=== PATIENT | female | born 1985 | race Caucasian/White ===

== ENCOUNTER 2023-06-27 20:42 | Outpatient (REF) | payer OTHER, SELFPAY ==
[2023-07-01 10:10] LABS: Age Gdln ACOG Testing Note (.); HPV Aptima Negative (Negative); IGP, Aptima HPV, rfx 16/18,45 Note (.)
== END 2023-06-27 20:43 | disposition home or self-care (01) ==
LOC: LAB 20:42
PROVIDERS: PCP Obstetrics & Gynecology; Visit Provider Obstetrics & Gynecology
DX: Z01.419 Encounter for gynecological examination (general) (routine) without abnormal findings (principal)
CPT/HCPCS: 87624; G0145

== ENCOUNTER 2024-07-02 21:38 | Outpatient (REF) | payer OTHER, SELFPAY ==
--- OUTSIDE RECORDS SUMMARY | 2024-07-02 21:42 | XMS_ITS | CCD ---
Author Organization [facility] Care Team Providers Care Digital Production Artist Name Role Phone WEI, DR GONGORA Consulting Unavailable WEI, DR GONGORA Admitting Unavailable BUNTING, DR STREET Primary Care Unavailable WEI, DR GONGORA Attending Unavailable WEI, DR GONGOAR Admitting Unavailable WEI, DR GONGORA Attending Unavailable BUNTING, DR STREET Primary Care Unavailable WEI, DR GONGORA Consulting Unavailable WEI, DR GONGORA Consulting Unavailable WEI, DR GONGORA Admitting Unavailable WEI, DR GONGORA Attending Unavailable BUNTING, DR STREET Primary Care Unavailable Bunting, DO Shahab Primary Care Provider Kuns, DO Juan Pinzon Attending Provider [phone] Bunting, DO Shahab Primary Care Provider Kuns, DO Juan Pinzon Attending Provider PHANI CARVAJAL Attending Unavailable Bunting, DO Shahab Primary Care Provider Phani Carvajal Attending Provider [phone] [facility] Martinez P Attending Provider Bunting, DO Shahab Primary Care Provider [phone] Bunting, DO Shahab Attending Provider Bunting, DO Shahab Primary Care Provider Bunting, DO Shahab Attending Provider Bunting, DO Shahab Primary Care Provider Bunting, DO Shahab Attending Provider MD Frankie Mondragon Attending Provider [phone] Bunting DO, Shahab Primary Care Provider [phone] Bunting DO, Shahab Attending Provider Giancarlo ANDERSON, Frankie Attending Provider [phone] Bunting DO, Shahab Primary Care Provider Bunting DO, Shahab Primary Care Provider [phone] Giancarlo ANDERSON, Frankie Attending Provider Asaad, Imad Admitting Unavailable Bunting, Shahab Primary Care Unavailable Asaad, Imad Attending Unavailable Bunting, Shahab Primary Care Unavailable Bunting, Shahab Attending Unavailable Bunting, Shahab Admitting Unavailable Asaad, Imad Admitting Unavailable Bunting, Shahab Primary Care Unavailable Asaad, Imad Attending Unavailable Kuns - CHC, Juan P Admitting Unavailable Kuns - CHC, Juan P Attending Unavailable Bunting, Shahab Primary Care Unavailable Bunting, Shahab Primary Care Unavailable Bunting, Shahab Attending Unavailable Bunting, Shahab Admitting Unavailable Bunting, Shahab Primary Care Unavailable Bunting, Shahab Attending Unavailable Bunting, Shahab Admitting Unavailable Bunting, Shahab Primary Care Unavailable Wei, Phani Admitting Unavailable Wei, Phani Attending Unavailable Bunting, Shahab Primary Care Unavailable Asaad, Imad Attending Unavailable Asaad, Imad Admitting Unavailable Bunting, Shahab Primary Care Unavailable Asaad, Imad Attending Unavailable Asaad, Imad Admitting Unavailable Bunting, Shahab Primary Care Unavailable Asaad, Imad Attending Unavailable Asaad, Imad Admitting Unavailable Bunting, Shahab Primary Care Unavailable Asaad, Imad Attending Unavailable Asaad, Imad Admitting Unavailable Asaad, Imad Admitting Unavailable Bunting, Shahab Primary Care Unavailable Asaad, Imad Attending Unavailable Bunting, Shahab R Primary Care Provider Medications Current Medications Medication Drug Class(es) Dates Sig (Normalized) Sig (Original) levothyroxine sodium 0.125 mg oral tablet (14 sources) l-Thyroxine Start: 09-16-2020 take 1 tablet by mouth once daily Levothyroxine 125 mcg tablet Active 125 MCG PO Daily September 15, 2020 11:00pm predniSONE 5 mg oral tablet (3 sources) Start: 05-22-2024 Prednisone 5 mg tablet Active 5 MG PO As Directed May 22, 2024 12:00am see taper instructions: 40 mg for 2 weeks, 30 mg for 1 week, 20mg for 1 week, 10 mg for 1 week, 5mg for 1 week Problems Active Problems Problem Classification Problem Date Documented Date Episodic/Chronic Hepatitis (1 source) Autoimmune hepatitis; Translations: [Autoimmune hepatitis] Onset: 06-08-2024 Chronic Immunizations and screening for infectious disease (1 source) Encounter for screening for human papillomavirus (HPV); Translations: [ENC SCREENING HUMAN PAPILLOMAVIRUS] Onset: 11-06-2021 Episodic Other liver diseases (6 sources) Steatosis of liver; Translations: [Fatty (change of) liver, not elsewhere classified] 03-13-2024 Chronic Other liver diseases (6 sources) Fatty (change of) liver, not elsewhere classified; Translations: [Other chronic nonalcoholic liver disease] Onset: 03-13-2024 03-13-2024 Chronic Other liver diseases (6 sources) Elevated liver enzymes level; Translations: [Abnormal levels of other serum enzymes] 03-13-2024 Episodic Other liver diseases (17 sources) Abnormal levels of other serum enzymes; Translations: [Other nonspecific abnormal serum enzyme levels] Onset: 06-20-2024 03-13-2024 Episodic Thyroid disorders (1 source) Autoimmune thyroiditis; Translations: [Autoimmune thyroiditis] Onset: 03-07-2024 Chronic Unclassified (1 source) Elevation of levels of liver transaminase levels; Translations: [Elevation of levels of liver transaminase levels] Onset: 04-17-2024 Past or Other Problems Problem Classification Problem Date Documented Date Episodic/Chronic Cancer of other female genital organs (4 sources) Low grade squamous intraepithelial lesion on cytologic smear of vagina (LGSIL); Translations: [LGSI LESION ON CYTOLOGIC SMEAR OF V] Onset: 11-26-2020 Episodic Other liver diseases (1 source) Abnormal serum enzyme level, unspecified; Translations: [Abnormal serum enzyme level, unspecified] Onset: 11-29-2023 Episodic Other screening for suspected conditions (not mental disorders or infectious disease) (6 sources) Encounter for screening for malignant neoplasm of cervix; Translations: [Other specified abnormal findings of blood chemistry] Onset: 05-29-2021 Episodic Results Test Name Value Interpretation Reference Range Facility Alanine aminotransferase [En zymatic activity/volume] in Serum or PlasmaOrdered By: Imad Asaad on 06-20-2024 ALT [Catalytic activity/Vol] Alanine aminotransferase [Enzymatic activity/volume] in Serum or Plasma 7-52 [facility] Albumin [Mass/volume] in Ser um or Plasma by Bromocresol green (BCG) dye binding methoOrdered By: Imad Asaad on 06-20-2024 Albumin BCG dye [Mass/Vol] Albumin [Mass/volume] in Serum or Plasma by Bromocresol green (BCG) dye binding metho 3.5-5.7 [facility] Alkaline phosphatase [Enzyma tic activity/volume] in Serum or PlasmaOrdered By: Imad Asaad on 06-20-2024 ALP [Catalytic activity/Vol] Alkaline phosphatase [Enzymatic activity/volume] in Serum or Plasma 34-104 [facility] Aspartate aminotransferase [ Enzymatic activity/volume] in Serum or PlasmaOrdered By: Imad Asaad on 06-20-2024 AST [Catalytic activity/Vol] Aspartate aminotransferase [Enzymatic activity/volume] in Serum or Plasma 13-39 [facility] Bilirubin.direct [Mass/volum e] in Serum or PlasmaOrdered By: Imad Asaad on 06-20-2024 Bilirubin.direct [Mass/Vol] Bilirubin.direct [Mass/volume] in Serum or Plasma High 0.03-0.18 [facility] Bilirubin.total [Mass/volume ] in Serum or PlasmaOrdered By: Imad Asaad on 06-20-2024 Bilirubin [Mass/Vol] Bilirubin.total [Mass/volume] in Serum or Plasma High 0.3-1.0 [facility] Comment on above: Samples from patient s who have taken Naproxen have shown spurious elevation in Total Bilirubin levels. A metabolite of Naproxen, O-desmethylnaproxen, has been shown to interfere with the Jendrassik-Grof method for measuring Total Bilirubin. Globulin Calc (S) [Mass/Vol] Ordered By: Imad Asaad on 06-20-2024 Globulin (S) [Mass/Vol] Serum globulin m easurement by calculation (mass/volume) [facility] Hepatic Panelon 06-20-2024 Albumin [Mass/Vol] 4.6 g/dL Normal 3.5-5.7 [facility] Comment on above: Performed By: #### P ILLAR CBC, PILLAR BMP, PILLAR LIPID, PILLAR TSH #### [address] Albumin/Globulin [Mass ratio] 1.8 {ratio} Normal [facility] Comment on above: Performed By: #### P ILLAR CBC, PILLAR BMP, PILLAR LIPID, PILLAR TSH #### [address] ALP [Catalytic activity/Vol] 44 U/L Normal 34-104 [facility] Comment on above: Result Comment: PERF ORMED BY: [place] [address] PATHOLOGIST CLOUD DEVELOPER STERLING SANON M.D. Performed By: #### P ILLAR CBC, PILLAR BMP, PILLAR LIPID, PILLAR TSH #### [address] ALT [Catalytic activity/Vol] 34 U/L Normal 7-52 [facility] Comment on above: Performed By: #### P ILLAR CBC, PILLAR BMP, PILLAR LIPID, PILLAR TSH #### [address] AST [Catalytic activity/Vol] 25 U/L Normal 13-39 [facility] Comment on above: Performed By: #### P ILLAR CBC, PILLAR BMP, PILLAR LIPID, PILLAR TSH #### [place] [address] [place] Bilirubin [Mass/Vol] 2.1 mg/dL High 0.3-1.0 [facility] Comment on above: Result Comment: Samp les from patients who have taken Naproxen have shown spurious elevation in Total Bilirubin levels. A metabolite of Naproxen, O-desmethylnaproxen, has been shown to interfere with the Jenlondonik-Amparo method for measuring Total Bilirubin. Performed By: #### P ILLAR CBC, PILLAR BMP, PILLAR LIPID, PILLAR TSH #### [address] Bilirubin,Indirect 1.8 mg/dL Normal [facility] Comment on above: Performed By: #### P ILLAR CBC, PILLAR BMP, PILLAR LIPID, PILLAR TSH #### [address] Bilirubin.indirect [Mass/Vol] 0.30 mg/dL High 0.03-0.18 [facility] Comment on above: Performed By: #### P ILLAR CBC, PILLAR BMP, PILLAR LIPID, PILLAR TSH #### [address] Globulin (S) [Mass/Vol] 2.6 g/dL Normal T [facility] Comment on above: Performed By: #### P ILLAR CBC, PILLAR BMP, PILLAR LIPID, PILLAR TSH #### [address] Protein [Mass/Vol] 7.2 g/dL Normal 6.4-8.9 [facility] Comment on above: Performed By: #### P ILLAR CBC, PILLAR BMP, PILLAR LIPID, PILLAR TSH #### [address] Immunoglobulin [place] Immunoglobulin G 1004 mg/dL Normal [id number] [facility] Comment on above: Result Comment: Perf ormed at: - [facility] [address] [id number] Intake Rn: Sang Nunez PhD, Phone: [phone] PERFORMED BY: [place] [address] PATHOLOGIST CLOUD DEVELOPER STERLING SANON M.D. Performed By: #### P ILLAR CBC, PILLAR BMP, PILLAR LIPID, PILLAR TSH #### [address] Protein [Mass/volume] in Ser um or PlasmaOrdered By: Frankie Mondragon on 06-20-2024 Protein [Mass/Vol] Protein [Mass/volume ] in Serum or Plasma 6.4-8.9 [facility] Serum or plasma albumin/glob ulin mass ratioOrdered By: Frankie Mondragon on 06-20-2024 Albumin/Globulin [Mass ratio] Serum or plasma albumin/globulin mass ratio [facility] Serum or plasma non-glucuron idated bilirubin measurement (mass/volume)Ordered By: Frankie Mondragon on 06-20-2024 Bilirubin.indirect [Mass/Vol] Serum or plasma non-glucuronidated bilirubin measurement (mass/volume) [facility] Interpretation of laboratory dataOrdered By: Frankie Mondragon on 06-08-2024 Interpretation and review of laboratory results Interpretation of laboratory data . [facility] Comment on above: The thiopurine methy ltransferase (TPMT) and nudix hydrolase(NUDT15) genes encode drug-metabolizing enzymes involvedin the metabolism of several clinically important drugsincluding the immunosuppressants azathioprine,mercaptopurine and thioguanine. The TPMT and NUDT15 enzymeshave similar functions in a shared thiopurine-metabolizingpathway; genotype and metabolic activity for TPMT [id number] may therefore be considered together whenassessing possible effects on drug response. Individualswith some variant TPMT and NUDT15 alleles may experience areduced therapeutic response and may be at risk for sideeffects from drugs that are metabolized by TPMT and NUDT15.TPMT and NUDT15 genotype information can be utilized topredict TPMT and NUDT15 metabolic activity which can beused as an aid in determining a therapeutic strategy fordrugs that are metabolized by TPMT and NUDT15. For example,thiopurine use in an individual with poor or intermediateTPMT and/or NUDT15 metabolism is associated with anaccumulation of cytotoxic metabolites and an increasedrisk for myelosuppression. In these instances, alternativedoses or drugs may be considered.Variation in the TPMT and NUDT15 genes can result in normal(NM), intermediate (IM), possible intermediate (Poss IM),poor (PM) and indeterminate (IND) drug-metabolizingphenotypes. In general, relative to the *1 allele (normalfunction), TPMT *2, *3A, *3B, *3C and NUDT15 *2 and *3alleles have no function whilst the NUDT15*4 allele has anuncertain function. The exact effect of a particulargenotype on individual drugs can vary. In addition togenotype, the metabolism of drugs may be influenced byadditional factors that include environmental, dietary andother medications; these factors and others should beconsidered prior to initiating a new therapy. All resultsmust be interpreted in the context of other test resultsand clinical findings. Results do not rule out thepossibility of other variant alleles in TPMT and NUDT15 orvariant alleles in other drug metabolism pathways.Patients should speak with their health care provider aboutthe individual results of this test. Interpretation of tissue or whole blood NUDT15 gene product metabolic activity (ordinOrdered By: Frankie Mondragon on 06-08-2024 NUDT15 gene product metabolic activity interpretation [employer] Ql (Bld/Tiss) [Interp] Interpretation of tissue or whole blood NUDT15 gene product metabolic activity (ordin . [facility] Comment on above: This test was develo ped and its performance characteristicsdetermined by [facility]. It has not been cleared orapproved by the Food and Drug Administration. shelter director name in ProviderOrdered By: Frankie Mondragon on 06-08-2024 shelter director name Nom (Provider) shelter director name in Provider . [facility] Comment on above: Shane Fink MD, P hDDirectorMonogram Biosciences NUDT15 gene mutations found [Identifier] in Blood or Tissue by Molecular genetics metOrdered By: Frankie Mondragon on 06-08-2024 NUDT15 gene targeted mutation analysis Molgen Nom (Bld/Tiss) NUDT15 gene mutations found [Identifier] in Blood or Tissue by Molecular genetics met . [facility] Comment on above: This test was develo ped and its performance characteristicsdetermined by [facility]. It has not been cleared orapproved by the Food and Drug Administration. No Panel InformationOrdered By: Frankie Mondragon on 06-08-2024 TPMT Genotype *1/*1 . [facility] Comment on above: This test was develo ped and its performance characteristicsdetermined by [facility]. It has not been cleared orapproved by the Food and Drug Administration. TPMT gene product metabolic activity interpretation in Blood or Tissue Qualitative byOrdered By: Frankie Mondragon on 06-08-2024 TPMT gene product metabolic activity interpretation Molgen Ql (Bld/Tiss) [Interp] TPMT gene product metabolic activity interpretation in Blood or Tissue Qualitative by . [facility] Comment on above: This test was develo ped and its performance characteristicsdetermined by [employer]. It has not been cleared orapproved by the Food and Drug Administration. Test performance information narrativeOrdered By: Frankie Mondragon on 06-08-2024 Test performance information Hans (Unsp spec) Test performance information in Specimen Narrative . [facility] Comment on above: Methodology:DNA anal ysis is performed by allele-specific real-timepolymerase chain reactions (RT-PCR) to detect single-nucleotide polymorphisms (SNPs) within the TPMT and [id number] and to assign variant TPMT *2, *3A, *3B and *3C [id number] *2 or *3 and *4 alleles. *1 denotes detection of thereference (wild-type) sequence at the assessed alleles. Noother variants in this gene are detected by this assay.This assay cannot distinguish between NUDT15 *2 and *3alleles, genotype reported as *2 or *3; this distinction isnot thought to be clinically relevant because both have nofunction. This assay is also unable to distinguish betweenthe more likely TPMT *1/*3A genotype (intermediate TPMTactivity) and the very rare TPMT *3B/*3C genotype (poorTMPT activity), genotype reported as *1/*3A or unlikely*3B/*3C, metabolic activity reported as likelyintermediate; these possibilities can be distinguished bytesting TPMT enzyme levels [Test #[id number]].Molecular-based testing is highly accurate, but as in anylaboratory test rare diagnostic errors may occur.References:1. https://www.fda.gov/medical-devices/precision-medicine/table- pharmacogenetic-association.2. Natalia WEBER., Olive M., Rebekah Vital., et al.Clinical Pharmacogenetics Implementation [facility] for Thiopurine Dosing Based on TPMT and [id number]: 2018 Update. Clinical Pharmacology andTherapeutics. 2019; Vol 105(5).3. ROLANDA Green., Meseret RCUZ., Sung ML., et al. TPMT [id number] Genotyping Recommendations: A Joint ConsensusRecommendation of the Association for MolecularPathology, Clinical Pharmaco- genetics ImplementationConsortium, College of [place] Pathologists, DutchPharmacogenetics Working Group of the [place] DutchPharmacists Association, Society for Pharmaco- genomics and Personalized Therapy, andPharmacogenomics Knowledgebase. Association forMolecular Pathology and [place] Society forInvestigative Pathology. 2021. 4. Pao Emerson. ThiogaunineTherapy and TPMT and NUDT15 Genotype. [facility] Information, Medical Genetics Summaries.2019.For more information on interpreting this report, pleasevisit [facility] or call Customer Service at [phone] the hours of 6:30am to 5:00pm PT Tuesday throughTuesday.[employer] is a subsidiary of [employer], using the brand [employer].The results should not be used as the sole criteria forpatient management.Performed at: - [facility] [place] [id number] Director: Shane Fink MD, Phone: [phone] Alanine aminotransferase [En zymatic activity/volume] in Serum or PlasmaOrdered By: Imad Asaad on 06-06-2024 ALT [Catalytic activity/Vol] Alanine aminotransferase [Enzymatic activity/volume] in Serum or Plasma 7-52 [facility] Albumin [Mass/volume] in Ser um or Plasma by Bromocresol green (BCG) dye binding methoOrdered By: Imad Asaad on 06-06-2024 Albumin BCG dye [Mass/Vol] Albumin [Mass/volume] in Serum or Plasma by Bromocresol green (BCG) dye binding metho 3.5-5.7 [facility] Alkaline phosphatase [Enzyma tic activity/volume] in Serum or PlasmaOrdered By: Imad Asaad on 06-06-2024 ALP [Catalytic activity/Vol] Alkaline phosphatase [Enzymatic activity/volume] in Serum or Plasma 34-104 [facility] Aspartate aminotransferase [ Enzymatic activity/volume] in Serum or PlasmaOrdered By: Imad Asaad on 06-06-2024 AST [Catalytic activity/Vol] Aspartate aminotransferase [Enzymatic activity/volume] in Serum or Plasma 13-39 [facility] Bilirubin.direct [Mass/volum e] in Serum or PlasmaOrdered By: Imad Asaad on 06-06-2024 Bilirubin.direct [Mass/Vol] Bilirubin.direct [Mass/volume] in Serum or Plasma High 0.03-0.18 [facility] Bilirubin.total [Mass/volume ] in Serum or PlasmaOrdered By: Imad Asaad on 06-06-2024 Bilirubin [Mass/Vol] Bilirubin.total [Mass/volume] in Serum or Plasma High 0.3-1.0 [facility] Comment on above: Samples from patient s who have taken Naproxen have shown spurious elevation in Total Bilirubin levels. A metabolite of Naproxen, O-desmethylnaproxen, has been shown to interfere with the Dee-Amparo method for measuring Total Bilirubin. Globulin Calc (S) [Mass/Vol] Ordered By: Imad Asaad on 06-06-2024 Globulin (S) [Mass/Vol] Serum globulin m easurement by calculation (mass/volume) [facility] Hepatic Panelon 06-06-2024 Albumin [Mass/Vol] 4.2 g/dL Normal 3.5-5.7 [facility] Comment on above: Performed By: #### P ILLAR CBC, PILLAR BMP, PILLAR LIPID, PILLAR TSH #### [facility] [address] [place] [address] Albumin/Globulin [Mass ratio] 1.6 {ratio} Normal [facility] Comment on above: Performed By: #### P ILLAR CBC, PILLAR BMP, PILLAR LIPID, PILLAR TSH #### [facility] [address] ALP [Catalytic activity/Vol] 45 U/L Normal 34-104 [facility] Comment on above: Result Comment: PERF ORMED BY: [place] [address] PATHOLOGIST CLOUD DEVELOPER STERLING SANON M.D. Performed By: #### P ILLAR CBC, PILLAR BMP, PILLAR LIPID, PILLAR TSH #### [facility] [address] [place] [id number] [facility] ALT [Catalytic activity/Vol] 24 U/L Normal 7-52 [facility] Comment on above: Performed By: #### P ILLAR CBC, PILLAR BMP, PILLAR LIPID, PILLAR TSH #### [address] AST [Catalytic activity/Vol] 17 U/L Normal 13-39 [facility] Comment on above: Performed By: #### P ILLAR CBC, PILLAR BMP, PILLAR LIPID, PILLAR TSH #### [address] Bilirubin [Mass/Vol] 1.9 mg/dL High 0.3-1.0 [facility] Comment on above: Result Comment: Samp les from patients who have taken Naproxen have shown spurious elevation in Total Bilirubin levels. A metabolite of Naproxen, O-desmethylnaproxen, has been shown to interfere with the Jendrassik-Grof method for measuring Total Bilirubin. Performed By: #### P ILLAR CBC, PILLAR BMP, PILLAR LIPID, PILLAR TSH #### [address] Bilirubin,Indirect 1.6 mg/dL Normal [facility] Comment on above: Performed By: #### P ILLAR CBC, PILLAR BMP, PILLAR LIPID, PILLAR TSH #### [address] Bilirubin.indirect [Mass/Vol] 0.30 mg/dL High 0.03-0.18 [facility] Comment on above: Performed By: #### P ILLAR CBC, PILLAR BMP, PILLAR LIPID, PILLAR TSH #### [address] Globulin (S) [Mass/Vol] 2.7 g/dL Normal T [facility] Comment on above: Performed By: #### P ILLAR CBC, PILLAR BMP, PILLAR LIPID, PILLAR TSH #### [address] Protein [Mass/Vol] 6.9 g/dL Normal 6.4-8.9 [facility] Comment on above: Performed By: #### P ILLAR CBC, PILLAR BMP, PILLAR LIPID, PILLAR TSH #### [facility] [address] [place] [address] [place] Immunoglobulin [place] Immunoglobulin G 1090 mg/dL Normal [id number] [facility] Comment on above: Result Comment: Perf ormed at: CB - [facility] [place] [address] [id number] Intake Rn: Sang Nunez PhD, Phone: [phone] PERFORMED BY: [place] [address] PATHOLOGIST CLOUD DEVELOPER STERLING SANON M.D. Performed By: #### P ILLAR CBC, PILLAR BMP, PILLAR LIPID, PILLAR TSH #### [facility] [address] Protein [Mass/volume] in Ser um or PlasmaOrdered By: Imad Asaad on 06-06-2024 Protein [Mass/Vol] Protein [Mass/volume ] in Serum or Plasma 6.4-8.9 [facility] Serum or plasma IgG measurem ent (mass/volume)Ordered By: Imad Asaad on 06-06-2024 IgG [Mass/Vol] IgG [Mass/volume] in Serum or Plasma [phone] [facility] Comment on above: Performed at: CB - [facility] [place] [id number] Director: Sang Nunez PhD, Phone: [phone] Serum or plasma albumin/glob ulin mass ratioOrdered By: Imad Asaad on 06-06-2024 Albumin/Globulin [Mass ratio] Serum or plasma albumin/globulin mass ratio [facility] Serum or plasma non-glucuron idated bilirubin measurement (mass/volume)Ordered By: Imad Asaad on 06-06-2024 Bilirubin.indirect [Mass/Vol] Serum or plasma non-glucuronidated bilirubin measurement (mass/volume) [facility] Coagulation Profileon 2023 aPTT Coag (Bld) [Time] 30.0 s Normal 25.1-36.5 [facility] Comment on above: Order Comment: STAT FOR BX Result Comment: A he matocrit value greater than 55% may lead to inaccurate results in coagulation testing. Patients having hematocrit values >55% require a special collection tube for coagulation studies. Please contact the laboratory at [phone] for redraw instructions. PERFORMED BY: [address] [address] PATHOLOGIST CLOUD DEVELOPER STERLING SANON M.D. Performed By: #### P ILLAR CBC, PILLAR BMP, PILLAR LIPID, PILLAR TSH #### [facility] [address] [place] [address] [facility] INR Coag (PPP) [Relative time] 1.0 {INR} Normal [facility] Comment on above: Order Comment: STAT FOR BX Result Comment: INR Therapeutic Range A) Pre- and Peroperative OAT started two weeks before surgery. NOT HIP SURGERY: 1.5 - 2.5 HIP SURGERY: 2 - 3 B) Primary and secondary prevention of venous THROMBOSIS: 2 - 3 C) Active venous thrombosis, pulmonary embolism and prevention of recurrent venous thrombosis: 2 - 3 D) Prevention of arterial thromboembolism including patients with mechanical heart valves: 3 - 4.5 Performed By: #### P ILLAR CBC, PILLAR BMP, PILLAR LIPID, PILLAR TSH #### [facility] [address] [place] [address] [facility] PT Coag (PPP) [Time] 11.2 s Normal 9.0-12.9 [facility] Comment on above: Order Comment: STAT FOR BX Result Comment: A he matocrit value greater than 55% may lead to inaccurate results in coagulation testing. Patients having hematocrit values >55% require a special collection tube for coagulation studies. Please contact the laboratory at [phone] for redraw instructions. Performed By: #### P ILLAR CBC, PILLAR BMP, PILLAR LIPID, PILLAR TSH #### [facility] [address] [place] [address] [place] INR in Platelet poor plasma by Coagulation assayOrdered By: Frankie Mondragon on 05-03-2024 INR Coag (PPP) [Relative time] INR in Platelet poor plasma by Coagulation assay [facility] Comment on above: INR Therapeutic Rang e A) Pre- and Peroperative OAT started two weeks before surgery. NOT HIP SURGERY: 1.5 - 2.5 HIP SURGERY: 2 - 3B) Primary and secondary prevention of venous THROMBOSIS: 2 - 3C) Active venous thrombosis, pulmonary embolismand prevention of recurrent venous thrombosis: 2 - 3D) Prevention of arterial thromboembolismincluding patients with mechanical heart valves: 3 - 4.5 Platelet Counton 05-03-2024 Platelets (Bld) [#/Vol] 176 10*3/uL Normal 150-450 [facility] Comment on above: Order Comment: STAT FOR BX Result Comment: PERF ORMED BY: [place] [address] PATHOLOGIST CLOUD DEVELOPER STERLING SANON M.D. Performed By: #### P ILLAR CBC, PILLAR BMP, PILLAR LIPID, PILLAR TSH #### [address] Platelets Auto (Bld) [#/Vol] Ordered By: Frankie Mondragon on 05-03-2024 Platelets (Bld) [#/Vol] Platelets [#/vol ume] in Blood by Automated count 150-450 [facility] Prothrombin time (PT)Ordered By: Frankie Mondragon on 05-03-2024 PT Coag (PPP) [Time] Prothrombin time (PT) 9.0- 12.9 [facility] Comment on above: A hematocrit value g reater than 55% may lead to inaccurate results in coagulation testing. Patients having hematocrit values >55% require a special collection tube for coagulation studies. Please contact the laboratory at [phone] for redraw instructions. US needle biopsyon 4 US needle biopsy [facility] [place] [address] [place] [address] Ultrasound Report Signed Patient: Madeleine Rodriguez MR#: [id number] : 1985 Acct:[id number] Age/Sex: 38 / F ADM Date: 05/03/24 Loc: Room: Type: [facility] Attending Dr: Frankie Mondragon MD Ordering Provider: Frankie Mondragon MD Date of Service: 05/03/24 US/US needle biopsy: R74.8 - Abnormal levels of other serum enzymes Copies to: Frankie Mondragon MD US needle biopsy 05/03/2024 9:43 AM SIGNS AND SYMPTOMS: Abnormal liver enzymes INFORMED CONSENT: Reason for procedure was discussed with the patient. The procedure expectations risks benefits options and alternatives were discussed. All the questions were answered. The patient understood the results cannot be guaranteed. The procedure is indicated and risks were acceptable. Consent was obtained. PROCEDURE: The left hepatic lobe was visualized in the epigastric region using grayscale sonographic imaging. The skin was marked in this location. The skin was prepped and draped in a sterile manner. 8 mL of lidocaine 2% without epinephrine were used for local anesthesia. Using an 18-gauge [employer] core biopsy system the liver was accessed percutaneously under sonographic visualization. A total of three 2.2 cm 18-gauge core specimens were obtained through the guide needle. The needles were removed and hemostasis was gained using manual pressure. A bandage was placed at the puncture site. The patient tolerated the procedure well. No immediate complications were detected. US/US needle biopsy IMPRESSION: Successful ultrasound-guided random core needle biopsy of the left hepatic lobe as above. Impression dictated by: Dre Marshall M.D.05/03/2024 12:30 PM Dictation Location: [place] [address] Tech: Avis Nash Transcribed By: TRUNG 05/03/24 1230 Dictated By: Dre Marshall II, MD 05/03/24 1228 Signed By: 05/03/24 1230 Normal [facility] aPTT in Platelet poor plasma by Coagulation assayOrdered By: Frankie Mondragon on 05-03-2024 aPTT Coag (PPP) [Time] Activated partial thromboplastin time (aPTT) in platelet poor plasma by coagulation a 25.1-36.5 [facility] Comment on above: A hematocrit value g reater than 55% may lead to inaccurate results in coagulation testing. Patients having hematocrit values >55% require a special collection tube for coagulation studies. Please contact the laboratory at [phone] for redraw instructions. Saad 05-02-2024 L ------- Specimen: [id number] Received: 05/03/24 Status: ZOHREH Erin Num: [id number] Spec Type: Surgical Subm Dr: Dre Marshall II, MD Tissues: A Gross Only (RANDOM LIVER BX) Procedures: Level 1 Gross Age/ Patient Sex Location Account Attending Physician Madeleine Rodriguez 38/F UL [id number] Frankie Mondragon MD SPEC NUM: [id number] RECD: 05/03/24 STATUS: ZOHREH ERIN NUM: [id number] LIZET: 05/02/[address]: Dre Marshall II, MD ENTERED: 05/03/[address] [facility] DR: Frankie Mondragon MD SPEC TYPE: Surgical DEPT: S ENTERED BY: [id number] RECV BY: [id number] ORDERED: Level 1 Gross ORDERED: Level 1 Gross Supplemental Report Addendum 1 Entered: 05/08/24 Supplemental for findings of consultation report from [facility]: -Hepatic parenchyma with portal inflammation (see comment) Note: -Please also see detailed description in entire report on file Addendum Signed (signature on file) Francis Echevarria MD 05/08/24 0849 Pathological Diagnosis Left lobe of liver, random core biopsies: -4 pale-champion to yellowish cylindrical segments of hepatic tissue to be entirely submitted to the reference laboratory for consultation testing. Gross only examination Specimen: [id number] Received: 05/03/24 Status: ZOHREH Erin Num: [id number] Spec Type: Surgical Subm Dr: Dre Marshall II, MD Tissues: A Gross Only (RANDOM LIVER BX) Procedures: Level 1 Gross Patient: MichaelMadeleine quezada [id number] (Continued) Specimen: [id number] Received: 05/03/24 (Continued) Signed (signature on file) Francis Echevarria MD 05/08/24 0844 Specimen: [id number] Received: 05/03/24 Status: ZOHREH Erin Num: [id number] Spec Type: Surgical Subm Dr: Dre Marshall II, MD Tissues: A Gross Only (RANDOM LIVER BX) Procedures: Level 1 Gross Patient: Madeleine Rodriguez [id number] (Continued) Specimen: [id number] Received: 05/03/24 (Continued) Clinical Information Elevated liver enzymes, R74.8-abnormal levels of other serum enzymes Gross Description Part A is received fresh labeled with the patients name, date of , and random liver L lobe of liver biopsy is a saline-soaked Telfa pad with 4 pale-champion to yellow, delicate needle core biopsy segments, 0.8 to 2.5 cm in length. The specimen is sent to [facility] for analysis. GROSS ONLY- CPT Codes 38066 Specimen: [id number] Received: 05/03/24 Status: ZOHREH Mendez Num: [id number] Spec Type: Surgical Subm Dr: Dre Marshall II, MD Tissues: A Gross Only (RANDOM LIVER BX) Procedures: Level 1 Gross Patient: Madeleine Rodriguez [id number] (Continued) Signed (signature on file) Francis Echevarria MD 05/08/24 0844 Normal [facility] Alanine aminotransferase [En zymatic activity/volume] in Serum or PlasmaOrdered By: Imad Asaad on 04-17-2024 ALT [Catalytic activity/Vol] Alanine aminotransferase [Enzymatic activity/volume] in Serum or Plasma High 7-52 [facility] Albumin [Mass/volume] in Ser um or Plasma by Bromocresol green (BCG) dye binding methoOrdered By: Imad Asaad on 04-17-2024 Albumin BCG dye [Mass/Vol] Albumin [Mass/volume] in Serum or Plasma by Bromocresol green (BCG) dye binding metho 3.5-5.7 [facility] Alkaline phosphatase [Enzyma tic activity/volume] in Serum or PlasmaOrdered By: Imad Asaad on 04-17-2024 ALP [Catalytic activity/Vol] Alkaline phosphatase [Enzymatic activity/volume] in Serum or Plasma 34-104 [facility] Aspartate aminotransferase [ Enzymatic activity/volume] in Serum or PlasmaOrdered By: Imad Asaad on 04-17-2024 AST [Catalytic activity/Vol] Aspartate aminotransferase [Enzymatic activity/volume] in Serum or Plasma High 13-39 [facility] Bilirubin.direct [Mass/volum e] in Serum or PlasmaOrdered By: Imad Asaad on 04-17-2024 Bilirubin.direct [Mass/Vol] Bilirubin.direct [Mass/volume] in Serum or Plasma High 0.03-0.18 [facility] Bilirubin.total [Mass/volume ] in Serum or PlasmaOrdered By: Imad Asaad on 04-17-2024 Bilirubin [Mass/Vol] Bilirubin.total [Mass/volume] in Serum or Plasma High 0.3-1.0 [facility] Comment on above: Samples from patient s who have taken Naproxen have shown spurious elevation in Total Bilirubin levels. A metabolite of Naproxen, O-desmethylnaproxen, has been shown to interfere with the Jendrassik-Grof method for measuring Total Bilirubin. Globulin Calc (S) [Mass/Vol] Ordered By: Frankie Mondragon on 04-17-2024 Globulin (S) [Mass/Vol] Serum globulin m easurement by calculation (mass/volume) [facility] Hepatic Panelon 04-17-2024 Albumin [Mass/Vol] 4.5 g/dL Normal 3.5-5.7 [facility] Comment on above: Performed By: #### P ILLAR CBC, PILLAR BMP, PILLAR LIPID, PILLAR TSH #### [address] Albumin/Globulin [Mass ratio] 1.6 {ratio} Normal [facility] Comment on above: Performed By: #### P ILLAR CBC, PILLAR BMP, PILLAR LIPID, PILLAR TSH #### [address] ALP [Catalytic activity/Vol] 53 U/L Normal 34-104 [facility] Comment on above: Result Comment: PERF ORMED BY: [place] [address] PATHOLOGIST CLOUD DEVELOPER STERLING SANON M.D. Performed By: #### P ILLAR CBC, PILLAR BMP, PILLAR LIPID, PILLAR TSH #### [address] ALT [Catalytic activity/Vol] 75 U/L High 7-52 [facility] Comment on above: Performed By: #### P ILLAR CBC, PILLAR BMP, PILLAR LIPID, PILLAR TSH #### [place] [address] [place] AST [Catalytic activity/Vol] 43 U/L High 13-39 [facility] Comment on above: Performed By: #### P ILLAR CBC, PILLAR BMP, PILLAR LIPID, PILLAR TSH #### [place] [address] [place] Bilirubin [Mass/Vol] 1.7 mg/dL High 0.3-1.0 [facility] Comment on above: Result Comment: Samp les from patients who have taken Naproxen have shown spurious elevation in Total Bilirubin levels. A metabolite of Naproxen, O-desmethylnaproxen, has been shown to interfere with the Jendrassik-Grof method for measuring Total Bilirubin. Performed By: #### P ILLAR CBC, PILLAR BMP, PILLAR LIPID, PILLAR TSH #### [facility] [address] [place] [id number] [facility] Bilirubin,Indirect 1.4 mg/dL Normal [facility] Comment on above: Performed By: #### P ILLAR CBC, PILLAR BMP, PILLAR LIPID, PILLAR TSH #### [place] [id number] [facility] Bilirubin.indirect [Mass/Vol] 0.30 mg/dL High 0.03-0.18 [facility] Comment on above: Performed By: #### P ILLAR CBC, PILLAR BMP, PILLAR LIPID, PILLAR TSH #### [facility] [address] [place] [id number] [facility] Globulin (S) [Mass/Vol] 2.8 g/dL Normal T [facility] Comment on above: Performed By: #### P ILLAR CBC, PILLAR BMP, PILLAR LIPID, PILLAR TSH #### [address] [address] [facility] Protein [Mass/Vol] 7.3 g/dL Normal 6.4-8.9 [facility] Comment on above: Performed By: #### P ILLAR CBC, PILLAR BMP, PILLAR LIPID, PILLAR TSH #### [place] [id number] [place] Protein [Mass/volume] in Ser um or PlasmaOrdered By: Imad Asaad on 04-17-2024 Protein [Mass/Vol] Protein [Mass/volume ] in Serum or Plasma 6.4-8.9 [facility] Serum or plasma albumin/glob ulin mass ratioOrdered By: Imad Asaad on 04-17-2024 Albumin/Globulin [Mass ratio] Serum or plasma albumin/globulin mass ratio [facility] Serum or plasma non-glucuron idated bilirubin measurement (mass/volume)Ordered By: Frankie Mondragon on 04-17-2024 Bilirubin.indirect [Mass/Vol] Serum or plasma non-glucuronidated bilirubin measurement (mass/volume) [facility] KISHAN Antinuclear Antibodieson 03-13-2024 Antinuclear Abs, IFA Positive Critically abnormal . [facility] Comment on above: Result Comment: Nega tive <1:80 Borderline 1:80 Positive >1:80 Performed By: #### L -K MICRO, HEMOCHROM, ELF, HAAB, HCBIGM, HCV RX PCR, HAABT, HBSAB, HBCAB, HBSAG, CERULOP, MITOM2, ALPHA PHEN, IGG, KISHAN, SMAB ####[facility] ,#### NESSA ####[facility] [id number] Note 1 Comment Normal . [facility] Comment on above: Result Comment: Nirmala urbina Potential Disease Association Homogeneous Systemic Lupus Erythematosus, Drug Induced Systemic Lupus Erythematosus, Chronic Autoimmune hepatitis, Juvenile Idiopathic Arthritis Speckled Sjogren Syndrome, Systemic Lupus Erythematosus, Subacute Cutaneous Lupus, Lupus, Congenital Heart Block, Mixed Connective Tissue Disease, Scleroderma-diffuse, Scleroderma-Autoimmune Myositis Overlap Syndrome, Systemic Lupus Craivcmmtmtfl-Nnmzjqsgnqx-Swtoaaqilr Myositis Overlap Syndrome, Systemic Autoimmune Rheumatic Disease, Undifferentiated Connective Tissue Disease Nucleolar Systemic Sclerosis, Scleroderma-Autoimmune Myositis Overlap Syndrome, Sjogren Syndrome, Raynaud phenomenon, Pulmonary Arterial Hypertension, Systemic Autoimmune Rheumatic Disease, Cancer Centromere Scleroderma-CREST, Limited Cutaneous SSc, Raynaud's Phenomenon, Primary Biliary Cholangitis Nuclear Dot Primary Biliary Cholangitis Nuclear Primary Biliary Cholangitis, Autoimmune Membrane Hepatitis/Liver disease, Systemic Autoimmune Rheumatic Disease, Autoimmune Cytopenias, Linear Scleroderma, Antiphospholipid Syndrome Performed at: - [facility] [id number] Intake Rn: Sang Nunez PhD, Phone: [phone] Performed By: #### L -K MICRO, HEMOCHROM, ELF, HAAB, HCBIGM, HCV RX PCR, HAABT, HBSAB, HBCAB, HBSAG, CERULOP, MITOM2, ALPHA PHEN, IGG, KISHAN, SMAB ####[facility] ,#### NESSA ####[facility] [id number] [place] [id number] [facility] Speckled Pattern 1 High . [facility] Comment on above: Result Comment: ICAP nomenclature: AC-2,4,5,29 Performed By: #### L -K MICRO, HEMOCHROM, ELF, HAAB, HCBIGM, HCV RX PCR, HAABT, HBSAB, HBCAB, HBSAG, CERULOP, MITOM2, ALPHA PHEN, IGG, KISHAN, SMAB ####[facility] ,#### NESSA ####[facility] [place] [id number] [facility] Actin smooth muscle IgG Ab [ Units/volume] in SerumOrdered By: Imad Asaad on 03-13-2024 Actin smooth muscle IgG Qn (S) Actin smooth muscle IgG Ab [Units/volume] in Serum 0-19 [facility] Comment on above: Negative 0 - 19 Weak positive 20 - 30 Moderate to strong positive >30 Actin Antibodies are found in 52-85% of patients with autoimmune hepatitis or chronic active hepatitis and in 22% of patients with primary biliary cirrhosis. Ylpvs-1-Gkkbxaspiaf Phenotyp amelia 03-13-2024 Alpha 1 Anti-Trypsin 140 mg/dL Normal 100-188 [facility] Comment on above: Performed By: #### L -K MICRO, HEMOCHROM, ELF, HAAB, HCBIGM, HCV RX PCR, HAABT, HBSAB, HBCAB, HBSAG, CERULOP, MITOM2, ALPHA PHEN, IGG, KISHAN, SMAB ####[facility] ,#### NESSA ####[facility] Phenotype (P1) MS Normal . [facility] Comment on above: Result Comment: MM Phenotype is considered to be normal , producing normal serum levels of wbocx-6-huztzrvj inhibitor and not associated with clinical disease. Associated A1A total serum levels in other phenotypes and their incidence in the general population are shown in the table below. Phenotype Population % function A-1-AT Conc.* Incidence % compared to MM (Typical Range) MM 86.5% 100% (96 - 189) MS 8.0% 86% (83 - 161) MZ 3.9% 61% (60 - 111) FM 0.4% 100% (93 - 191) SZ 0.3% 41% (42 - 75) SS 0.1% 64% (62 - 119) ZZ 0.05% 19% (16 - 38) FS 0.05% 70% (70 - 128) FZ Unknown 46% (44 - 88) FF Unknown Unknown *A-1-AT concentration in the homozygous MM phenotype is taken as the reference normal. Percent deficiency in each phenotype is reported relative to this reference. Ranges used to confirm phenotype. Performed at: - [facility] [id number] Intake Rn: Sang Nunez PhD, Phone: [phone] Performed at: - [facility] [id number] Intake Rn: Anna Chen MD, Phone: [phone] Performed By: #### L -K MICRO, HEMOCHROM, ELF, HAAB, HCBIGM, HCV RX PCR, HAABT, HBSAB, HBCAB, HBSAG, CERULOP, MITOM2, ALPHA PHEN, IGG, KISHAN, SMAB ####[facility] ,#### NESSA ####[facility] [address] Blood or tissue HFE gene mut ations identification by molecular genetics methodOrdered By: Frankie Mondragon on 03-13-2024 HFE gene targeted mutation analysis [employer] Nom (Bld/Tiss) Blood or tissue HFE gene mutations identification by molecular genetics method . [facility] Comment on above: Result:c.845G>A (p.C do633Iio) - Not Detectedc.187C>G (p.Kkm67Zzk) - Not Detectedc.193A>T (p.Xmu83Kvd) - Not DetectedNot associated with increased risk to develop clinicalsymptoms of Hereditary Hemochromatosis. In symptomaticindividuals, other causes of iron overload should beevaluated. See Additional Information and Comments.Additional Clinical Information:Hereditary hemochromatosis (HFE related) is an autosomalrecessive iron storage disorder. Patients may have agenetic diagnosis of hereditary hemochromatosis and nevershow clinical symptoms. Clinical symptoms typically appearbetween 40 to 60 years in males and after menopause infemales. Signs and symptoms may include organ damage,primarily in the liver, risk for hepatocellularcarcinoma, diabetes, and heart disease due to ironaccumulation. Life expectancy may be decreased inindividuals who develop cirrhosis. Treatment forclinically symptomatic individuals may includetherapeutic phlebotomy. Liver transplant may be used totreat end stage liver failure. For preventive care,monitoring for iron overload is recommended for patientswho are homozygous for c.845G>A (p.Rhh968Dnj) and have yetto experience clinical symptoms.Comments:The most common HFE variants associated with hereditaryhemochromatosis are c.845G>A (p.Tww246Tld), c.187C>G(p.Feg40Tzv), c.193A>T (p.Hed81Xyo). While patientshomozygous for c.845G>A (p.Lbm568Eme) are the most likelyto present clinical symptoms, less than 10% developclinically significant iron overload with tissue and organdamage.Genetic counseling is recommended to discuss the potentialclinical implications of positive results, as well asrecommendations for testing family members.Genetic Coordinators are available for health careproviders to discuss results at [phone]).Test Details:Three variants analyzed:c.845G>A (p.Zkr129Boc), commonly referred to as C282Yc.187C>G (p.Nhy18Cpu), commonly referred to as H63Dc.193A>T (p.Qzg99Rfo), commonly referred to as N92NXjjcxms/Limitations:DNA Analysis of the HFE gene (NM_[id number]) was performedby PCR amplification followed by restriction enzymedigestion analyses. Results must be combined with clinicalinformation for the most accurate interpretation. Molecular-based testing is highly accurate, but as in any laboratorytest, diagnostic errors may occur. False positive or falsenegative results may occur for reasons that include geneticvariants, blood transfusions, bone marrow transplantation,somatic or tissue-specific mosaicism, mislabeled samples,or erroneous representation of family relationships.This test was developed and its performancecharacteristics determined by [employer]. It has not beencleared or approved by the Food and Drug Administration.References:Cody BR, Efraín PC, Kj KV, Scottie LW, Lola ;[place] [employer] for the [employer] Liver Diseases.Diagnosis and management of hemochromatosis: 2011 practiceguideline by the [place] Association for the Study ofLiver Diseases. Hepatology. 2010;54(1):328-43. doi:10.1002/hep.81067. PMID: 25886837; PMCID: [id number].Camila G, Shaunna P, Ravin LUGO, James H, Jimmie O,Maurice S, Sae I, Tenzin M, Candy S. [facility] best practiceguidelines for the molecular genetic diagnosis ofhereditary hemochromatosis (HH). Eur J Hum Crystal. 2016Apr;24(4):479-95. doi: 10.1038/ejhg.2015.128. Epub 2014. PMID: 36888844; PMCID: [id number]. Ceruloplasminon 03-13-2024 Ceruloplasmin 29.2 mg/dL Normal 19.0-39.0 [facility] Comment on above: Result Comment: Perf ormed at: CB - [facility] [address] [id number] Intake Rn: Sang Nunez PhD, Phone: [phone] PERFORMED BY: [facility] [address] [place] [address] PATHOLOGIST CLOUD DEVELOPER STEPHANIE STONE M.D. Performed By: #### L -K MICRO, HEMOCHROM, ELF, HAAB, HCBIGM, HCV RX PCR, HAABT, HBSAB, HBCAB, HBSAG, CERULOP, MITOM2, ALPHA PHEN, IGG, KISHAN, SMAB ####[facility] ,#### NESSA ####[facility] Cse[address] Enhanced Liver Fibrosis Test on 03-13-2024 Enhanced Liver Fibrosis Score 9.78 Normal <9.80 [facility] Comment on above: Result Comment: ELF( TM) Score Interpretation: Risk cut-offs to assess the likelihood of progression to cirrhosis and liver-related clinical events within 3.9 years following baseline ELF score (IQR: 14.0-22.4 months)*: Lower risk < 9.80 Mid risk 9.80 - 11.29 Higher risk >11.29 Note: The ELF(TM) Score is a unitless numerical value. *Jim SA, Deon VW, Okzeina T, et al. Selonsertib for patients with bridging fibrosis or compensated cirrhosis due to SHIN: Results from randomized phase III STELLAR trials. J Hepatol. 2020 Nov;73(1):26-39. Performed at: [facility] [address] [id number] Intake Rn: Anna Chen MD, Phone: [phone] PERFORMED BY: [place] [address] PATHOLOGIST CLOUD DEVELOPER STERLING SANON M.D. Performed By: #### P ILLAR CBC, PILLAR BMP, PILLAR LIPID, PILLAR TSH #### [facility] [address] [place] [address] Ferritin [Mass/volume] in Se rum or PlasmaOrdered By: Frankie Mondragon on 03-13-2024 Ferritin [Mass/Vol] 27.5 ng/mL Normal 11.0-306.8 [facility] Comment on above: Result Comment: PERF ORMED BY: [place] [address] PATHOLOGIST CLOUD DEVELOPER STEPHANIE STONE M.D. Performed By: #### L -K MICRO, HEMOCHROM, ELF, HAAB, HCBIGM, HCV RX PCR, HAABT, HBSAB, HBCAB, HBSAG, CERULOP, MITOM2, ALPHA PHEN, IGG, KISHAN, SMAB #### [facility] , #### NESSA #### [facility] [address] [place], [place] [id number] [place] Ferritin [Mass/Vol] Ferritin [Mass/volum e] in Serum or Plasma 11.0-306.8 [facility] Hep C Ab wRfx to Qnt PCRon 1 05-13-2023 Hepatitis C Virus Antibody Non-Reactive Normal Non Reactive [facility] Comment on above: Performed By: #### L -K MICRO, HEMOCHROM, ELF, HAAB, HCBIGM, HCV RX PCR, HAABT, HBSAB, HBCAB, HBSAG, CERULOP, MITOM2, ALPHA PHEN, IGG, KISHAN, SMAB #### [facility] , #### NESSA #### [address] Interpretation Hepatitis C Comment Normal . [facility] Comment on above: Result Comment: Not infected with HCV unless early or acute infection is suspected (which may be delayed in an immunocompromised individual), or other evidence exists to indicate HCV infection. Performed By: #### L -K MICRO, HEMOCHROM, ELF, HAAB, HCBIGM, HCV RX PCR, HAABT, HBSAB, HBCAB, HBSAG, CERULOP, MITOM2, ALPHA PHEN, IGG, KISHAN, SMAB #### [facility] , #### NESSA #### [address] Hepatitis A Antibody IgMon 1 05-13-2023 Hepatitis A Antibody IgM Negative Normal Negative [facility] Comment on above: Result Comment: A ne gative anti-HAV IgM result suggests no recent or current HAV infection. Performed By: #### L -K MICRO, HEMOCHROM, ELF, HAAB, HCBIGM, HCV RX PCR, HAABT, HBSAB, HBCAB, HBSAG, CERULOP, MITOM2, ALPHA PHEN, IGG, KISHAN, SMAB #### [facility] , #### NESSA #### [address] Hepatitis A Antibody Totalon 03-13-2024 Hepatitis A Antibody Total Negative Normal Negative [facility] Comment on above: Result Comment: Comm ent: The HAV total antibody assay detects both IgG and IgM but does not differentiate between them. A negative result suggests susceptibility to infection. A positive result could be due to vaccination, previously resolved infection or active infection. Testing for HAV IgM should be performed if active HAV infection is suspected. [facility] offers profiles that will automatically reflex positive HAV total antibody results to IgM (e.g., panel #[id number] HAV Antibody w/ Rfx). Performed By: #### L -K MICRO, HEMOCHROM, ELF, HAAB, HCBIGM, HCV RX PCR, HAABT, HBSAB, HBCAB, HBSAG, CERULOP, MITOM2, ALPHA PHEN, IGG, KISHAN, SMAB ####[facility] ,#### NESSA ####[facility] [id number] Hepatitis A virus Ab [Presen ce] in Serum by ImmunoassayOrdered By: Frankie Mondragon on 03-13-2024 HAV Ab IA Ql (S) Hepatitis A virus Ab [Presence] in Serum by Immunoassay Negative [facility] Comment on above: Comment: The HAV tot al antibody assay detects both IgG andIgM but does not differentiate between them. A negativeresult suggests susceptibility to infection. A positiveresult could be due to vaccination, previously resolvedinfection or active infection. Testing for HAV IgM shouldbe performed if active HAV infection is suspected. [facility] that will automatically reflex positive HAVtotal antibody results to IgM (e.g., panel #[id number] HAVAntibody w/ Rfx). Hepatitis A virus IgM antibo dy assayOrdered By: Frankie Mondragon on 03-13-2024 Hepatitis A IgM Antibody Negative Negative [facility] Comment on above: A negative anti-HAV IgM result suggests no recent orcurrent HAV infection. Hepatitis B Core Antibodyon 03-13-2024 Hepatitis B Core Antibody Negative Normal Negative [facility] Comment on above: Performed By: #### L -K MICRO, HEMOCHROM, ELF, HAAB, HCBIGM, HCV RX PCR, HAABT, HBSAB, HBCAB, HBSAG, CERULOP, MITOM2, ALPHA PHEN, IGG, KISHAN, SMAB ####[facility] ,#### NESSA ####[facility] [id number] Hepatitis B Core Antibody Ig Mon 03-13-2024 Hepatitis B Core Antibody IgM Negative Normal Negative [facility] Comment on above: Result Comment: Perf ormed at: CB - [facility] [address] [id number] Intake Rn: Sang Nunez PhD, Phone: [phone] Performed By: #### L -K MICRO, HEMOCHROM, ELF, HAAB, HCBIGM, HCV RX PCR, HAABT, HBSAB, HBCAB, HBSAG, CERULOP, MITOM2, ALPHA PHEN, IGG, KISHAN, SMAB #### [facility] , #### NESSA #### [address] Hepatitis B Surface Antibody on 03-13-2024 Hepatitis B Surface Antibody Reactive Normal . [facility] Comment on above: Result Comment: Non Reactive: Not immune to HBV infection. Equivocal: Unable to determine if anti-HBs is present at levels consistent with immunity. Reactive: Anti-HBs concentration detected at greater than 10 mIU/mL. Individual is considered to be immune to infection with HBV. Performed By: #### L -K MICRO, HEMOCHROM, ELF, HAAB, HCBIGM, HCV RX PCR, HAABT, HBSAB, HBCAB, HBSAG, CERULOP, MITOM2, ALPHA PHEN, IGG, KISHAN, SMAB ####[facility] ,#### NESSA ####[address] Hepatitis B Surface Antigeno n 03-13-2024 HBsAg Screen Negative Normal Negative [facility] Comment on above: Result Comment: PERF ORMED BY: [place] [address] PATHOLOGIST CLOUD DEVELOPER STEPHANIE STONE M.D. Performed By: #### L -K MICRO, HEMOCHROM, ELF, HAAB, HCBIGM, HCV RX PCR, HAABT, HBSAB, HBCAB, HBSAG, CERULOP, MITOM2, ALPHA PHEN, IGG, KISHAN, SMAB ####[facility] ,#### NESSA ####[address] Hepatitis B virus core IgM a ntibody assayOrdered By: Frankie Mondragon on 03-13-2024 Hepatitis B Core IgM Antibody Negative Negative [facility] Comment on above: Performed at: [address] [id number] Director: Sang Nunez PhD, Phone: [phone] Hepatitis B virus core antib stevie assayOrdered By: Frankie Mondragon on 03-13-2024 Hepatitis B Core Total Antibody Negative Negative [facility] Hepatitis C virus IgG Ab [Pr esence] in Serum or Plasma by ImmunoassayOrdered By: Frankie Mondragon on 03-13-2024 HCV IgG IA Ql Hepatitis C virus Ig G Ab [Presence] in Serum or Plasma by Immunoassay Non Reactive [facility] Hereditary Hemochromatosis,D Alexa 03-13-2024 Hereditary Hemochromatosis Comment Normal . [facility] Comment on above: Result Comment: Resu lt: c.845G>A (p.Fox254Hki) - Not Detected c.187C>G (p.Lvj14Xei) - Not Detected c.193A>T (p.Xwj06Hqh) - Not Detected Not associated with increased risk to develop clinical symptoms of Hereditary Hemochromatosis. In symptomatic individuals, other causes of iron overload should be evaluated. See Additional Information and Comments. Additional Clinical Information: Hereditary hemochromatosis (HFE related) is an autosomal recessive iron storage disorder. Patients may have a genetic diagnosis of hereditary hemochromatosis and never show clinical symptoms. Clinical symptoms typically appear between 40 to 60 years in males and after menopause in females. Signs and symptoms may include organ damage, primarily in the liver, risk for hepatocellular carcinoma, diabetes, and heart disease due to iron accumulation. Life expectancy may be decreased in individuals who develop cirrhosis. Treatment for clinically symptomatic individuals may include therapeutic phlebotomy. Liver transplant may be used to treat end stage liver failure. For preventive care, monitoring for iron overload is recommended for patients who are homozygous for c.845G>A (p.Oxc604Jup) and have yet to experience clinical symptoms. Comments: The most common HFE variants associated with hereditary hemochromatosis are c.845G>A (p.Foh075Zcj), c.187C>G (p.Ngv99Ywj), c.193A>T (p.Lai93Lef). While patients homozygous for c.845G>A (p.Lay712Syw) are the most likely to present clinical symptoms, less than 10% develop clinically significant iron overload with tissue and organ damage. Genetic counseling is recommended to discuss the potential clinical implications of positive results, as well as recommendations for testing family members. Genetic Coordinators are available for health care providers to discuss results at [phone] [phone] Test Details: Three variants analyzed: c.845G>A (p.Qoa061Mdp), commonly referred to as C282Y c.187C>G (p.Kbv93Csm), commonly referred to as H63D c.193A>T (p.Xww85Afh), commonly referred to as S65C Methods/Limitations: DNA Analysis of the HFE gene (NM_000410.4) was performed by PCR amplification followed by restriction enzyme digestion analyses. Results must be combined with clinical information for the most accurate interpretation. Molecular- based testing is highly accurate, but as in any laboratory test, diagnostic errors may occur. False positive or false negative results may occur for reasons that include genetic variants, blood transfusions, bone marrow transplantation, somatic or tissue-specific mosaicism, mislabeled samples, or erroneous representation of family relationships. This test was developed and its performance characteristics determined by [employer]. It has not been cleared or approved by the Food and Drug Administration. References: Cody BR, Efraín PC, Kj KV, Scottie LW, Lola ; [employer] Liver [employer]. Diagnosis and management of hemochromatosis: 2011 practice guideline by the [employer] Liver Diseases. Hepatology. 2011 Nov;54(1):328-43. doi: 10.1002/hep.00638. PMID: 64793139; PMCID: KZM3189054. Camila G, Shaunna P, Ravin DW, James H, Jimmie O, Maurice S, Sae I, Tenzin M, Candy S. [facility] best practice guidelines for the molecular genetic diagnosis of hereditary hemochromatosis (HH). Eur J Hum Crystal. 2016 Apr;24(4):479-95. doi: 10.1038/ejhg.2015.128. Epub 2014Nov 13. PMID: 60296086; PMCID: VIX3521324. Performed By: #### P ILLAR CBC, PILLAR BMP, PILLAR LIPID, PILLAR TSH #### [place] [address] [place] Reviewed by: Comment Normal . [facility] Comment on above: Result Comment: Tech nical Component performed at [facility] Professional Component performed by: [facility] Jung Mcguire, Ph.D., [facility] Director, Molecular Genetics [address] [place] [address] [place] [address] Performed at: [facility] [address], [place] [id number] Intake Rn: Margaret Hill [facility], Phone: [phone] Performed By: #### P ILLAR CBC, PILLAR BMP, PILLAR LIPID, PILLAR TSH #### [address] Immunoglobulin [place] Immunoglobulin G 1216 mg/dL Normal 586-1602 [facility] Comment on above: Result Comment: Perf ormed at: [address] [id number] Intake Rn: Sang Nunez PhD, Phone: [phone] Performed By: #### L -K MICRO, HEMOCHROM, ELF, HAAB, HCBIGM, HCV RX PCR, HAABT, HBSAB, HBCAB, HBSAG, CERULOP, MITOM2, ALPHA PHEN, IGG, KISHAN, SMAB ####[facility] ,#### NESSA ####[facility] [place] [address] Liver-Kidney Microsomal Abon 03-13-2024 Liver-Kidney Microsomal Ab 1.5 Normal 0.0-20.0 [facility] Comment on above: Result Comment: Nega tive 0.0 - 20.0 Equivocal 20.1 - 24.9 Positive >24.9 LKM type 1 antibodies are detected in patients with autoimmune hepatitis type 2 and in up to 8% of patients with chronic HCV infection. Performed at: [address] [id number] Intake Rn: Sang Nunez PhD, Phone: [phone] Performed By: #### P ILLAR CBC, PILLAR BMP, PILLAR LIPID, PILLAR TSH #### [address] Mitochondrial (M2) Antibodyo n 03-13-2024 Mitochondrial (M2) Antibody <20.0 Normal 0.0-20.0 [facility] Comment on above: Result Comment: Nega tive 0.0 - 20.0 Equivocal 20.1 - 24.9 Positive >24.9 Mitochondrial (M2) Antibodies are found in 90-96% of patients with primary biliary cirrhosis. Performed at: - [facility], [place], [place] [id number] Intake Rn: Sang Nunez PhD, Phone: [phone] Performed By: #### L -K MICRO, HEMOCHROM, ELF, HAAB, HCBIGM, HCV RX PCR, HAABT, HBSAB, HBCAB, HBSAG, CERULOP, MITOM2, ALPHA PHEN, IGG, KISHAN, SMAB ####[facility] ,#### NESSA ####[facility] [id number] No Panel InformationOrdered By: Frankie Mondragon on 03-13-2024 Anti-Nuclear Antibody Comment 2 Comment . [facility] Comment on above: Pattern Potential Di sease Association Homogeneous Systemic Lupus Erythematosus, Drug Induced Systemic Lupus Erythematosus, Chronic Autoimmune hepatitis, Juvenile Idiopathic Arthritis Speckled Sjogren Syndrome, Systemic Lupus Erythematosus, Subacute Cutaneous Lupus, Lupus, Congenital Heart Block, Mixed Connective Tissue Disease, Scleroderma-diffuse, Scleroderma-Autoimmune Myositis Overlap Syndrome, Systemic Lupus Ytlwbzmbrarwn-Urjgmpnqops-Rgfinvzztw Myositis Overlap Syndrome, Systemic Autoimmune Rheumatic Disease, Undifferentiated Connective Tissue Disease Nucleolar Systemic Sclerosis, Scleroderma-Autoimmune Myositis Overlap Syndrome, Sjogren Syndrome, Raynaud phenomenon, Pulmonary Arterial Hypertension, Systemic Autoimmune Rheumatic Disease, Cancer Centromere Scleroderma-CREST, Limited Cutaneous SSc, Raynaud's Phenomenon, Primary Biliary Cholangitis Nuclear Dot Primary Biliary Cholangitis Nuclear Primary Biliary Cholangitis, AutoimmuneMembrane Hepatitis/Liver disease, Systemic Autoimmune Rheumatic Disease, Autoimmune Cytopenias, Linear Scleroderma, Antiphospholipid Syndrome Performed at: [facility] [employer] [id number] Director: Sang Nunez PhD, Phone: [phone] Hemochromatosis Note Comment . [facility] Comment on above: Technical Component performed at [facility] RTPProfessional Component performed by:[employer] Sloan Mcguire, Ph.D., FACMGDirector, Molecular Glxulhyy[address] [place] [address]Hptlovkvo at: [facility] [id number] [place], [place] [id number] Director: Margaret Hill [facility], Phone: [phone] Hepatitis C Interpretation Comment . [facility] Comment on above: Not infected with HC V unless early or acute infection issuspected (which may be delayed in an immunocompromisedindividual), or other evidence exists to indicate HCVinfection. Serum hepatitis B virus surf estela antibody detectionOrdered By: Frankie Mondragon on 03-13-2024 HBV surface Ab Ql (S) Hepatitis B virus surface Ab [Presence] in Serum . [facility] Comment on above: Non Reactive: Not im mune to HBV infection. Equivocal: Unable to determine if anti-HBs is present at levels consistent with immunity. Reactive: Anti-HBs concentration detected at greater than 10 mIU/mL. Individual is considered to be immune to infection with HBV. Serum homogeneous pattern an tinuclear antibody (KISHAN) titerOrdered By: Frankie Mondragon on 03-13-2024 Homogenous nuclear Ab pattern (S) [Titer] Serum homogeneous pattern antinuclear antibody (KISHAN) titer [facility] Serum mitochondria M2 IgG an tibody assay (units/volume)Ordered By: Frankie Mondragon on 03-13-2024 Mitochondria M2 IgG Qn (S) Serum mitochondria M2 IgG antibody assay (units/volume) 0.0-20.0 [facility] Comment on above: Negative 0.0 - 20.0 Equivocal 20.1 - 24.9 Positive >24.9Mitochondrial (M2) Antibodies are found in 90-96% ofpatients with primary biliary cirrhosis.Performed at: [email or web address] [address] [id number] Director: Sang Nunez PhD, Phone: [phone] Serum nuclear antibody titer Ordered By: Frankie Mondragon on 03-13-2024 Nuclear Ab (S) [Titer] Serum nuclear ant ibody titer Abnormal . [facility] Comment on above: Negative <1:80 Borde rline 1:80 Positive >1:80 Serum or plasma IgG measurem ent (mass/volume)Ordered By: Frankie Mondragon on 03-13-2024 IgG [Mass/Vol] IgG [Mass/volume] in Serum or Plasma 449-0010 [facility] Comment on above: Performed at: [email or web address] [address] [id number] Director: Sang Nunez PhD, Phone: [phone] Serum or plasma alpha 1 anti trypsin measurement (mass/volume)Ordered By: Frankie Mondragon on 03-13-2024 Alpha 1 antitrypsin [Mass/Vol] Serum rwgkl-8-wtvsyvlhxbe measurement 100-188 [facility] Serum or plasma alpha 1 anti trypsin phenotyping identification by immunofixationOrdered By: Frankie Mondragon on 03-13-2024 Alpha 1 antitrypsin phenotyping Immunofixation Nom Serum or plasma alpha 1 antitrypsin phenotyping identification by immunofixation . [facility] Comment on above: MM Phenotype is co nsidered to be normal , producingnormal serum levels of esdtp-1-sithgffq inhibitor andnot associated with clinical disease. Associated O8Bfzqih serum levels in other phenotypes and theirincidence in the general population are shown in thetable below.Phenotype Population % function A-1-AT Conc.* Incidence % compared to MM (Typical Range) MM 86.5% 100% (96 - 189) MS 8.0% 86% (83 - 161) MZ 3.9% 61% (60 - 111) FM 0.4% 100% (93 - 191) SZ 0.3% 41% (42 - 75) SS 0.1% 64% (62 - 119) ZZ 0.05% 19% (16 - 38) FS 0.05% 70% (70 - 128) FZ Unknown 46% (44 - 88) FF Unknown Unknown*A-1-AT concentration in the homozygous MM phenotype is taken as the reference normal. Percent deficiency in each phenotype is reported relative to this reference. Ranges used to confirm phenotype.Performed at: [employer] [address] [id number] Director: Sang Nunez PhD, Phone: [phone] at: [facility] [id number] Director: Anna Chen MD, Phone: [phone] Serum or plasma ceruloplasmi n measurement (mass/volume)Ordered By: Frankie Mondragon on 03-13-2024 Ceruloplasmin [Mass/Vol] Serum or plasma ceruloplasmin measurement (mass/volume) 19.0-39.0 [facility] Comment on above: Performed at: [email or web address] - [address] [id number] Director: Sang Nunez PhD, Phone: [phone] Serum or plasma hepatitis B virus surface antigen detection by immunoassayOrdered By: Frankie Mondragon on 03-13-2024 HBV surface Ag IA Ql Hepatitis B virus s urface Ag [Presence] in Serum or Plasma by Immunoassay Negative [facility] Serum or plasma lipoprotein a measurement (moles/volume)Ordered By: Frankie Mondragon on 03-13-2024 Lipoprotein a [Moles/Vol] Serum or plasma lipoprotein a measurement (moles/volume) 0.0-20.0 [facility] Comment on above: Negative 0.0 - 20.0 Equivocal 20.1 - 24.9 Positive >24.9LKM type 1 antibodies are detected in patients withautoimmune hepatitis type 2 and in up to 8% ofpatients with chronic HCV infection.Performed at: - [facility]z5[facility] [place], [place] [id number] Director: Sang Nunez PhD, Phone: [phone] Serum speckled pattern antin uclear antibody (KISHAN) titerOrdered By: Frankie Mondragon on 03-13-2024 Speckled nuclear Ab pattern (S) [Titer] Serum speckled pattern antinuclear antibody (KISHAN) titer High . [facility] Comment on above: ICAP nomenclature: A C-2,4,5,29 Smooth Muscle Antibodyon Smooth Muscle Antibody 13 Normal 0-19 Th [facility] Comment on above: Result Comment: Nega tive 0 - 19 Weak positive 20 - 30 Moderate to strong positive >30 Actin Antibodies are found in 52-85% of patients with autoimmune hepatitis or chronic active hepatitis and in 22% of patients with primary biliary cirrhosis. Performed By: #### L -K MICRO, HEMOCHROM, ELF, HAAB, HCBIGM, HCV RX PCR, HAABT, HBSAB, HBCAB, HBSAG, CERULOP, MITOM2, ALPHA PHEN, IGG, KISHAN, SMAB ####[facility] ,#### NESSA ####[facility] [id number] Thyrotropin [Units/volume] i n Serum or PlasmaOrdered By: Shahab Townsend on 03-07-2024 TSH Qn 1.31 m[IU]/L Normal 0.45-5.33 [facility] Comment on above: Result Comment: PERF ORMED BY: [place] [address] PATHOLOGIST CLOUD DEVELOPER STEPHANIE STONE M.D. Performed By: #### P ILLAR CBC, PILLAR BMP, PILLAR LIPID, PILLAR TSH #### [address] TSH Qn Thyrotropin [Units/v olume] in Serum or Plasma 0.45-5.33 [facility] Thyroxine (T4) free [Mass/vo lume] in Serum or PlasmaOrdered By: Shahab Bunting on 03-07-2024 Free T4 [Mass/Vol] 1.05 ng/dL Normal 0.61-1.12 [facility] Comment on above: Performed By: #### P ILLAR CBC, PILLAR BMP, PILLAR LIPID, PILLAR TSH #### [place] [id number] [facility] Free T4 [Mass/Vol] Thyroxine (T4) free [Mass/volume] in Serum or Plasma 0.61-1.12 [facility] Triiodothyronine (T3) Freeon 03-07-2024 Triiodothyronine (T3) Free 4.90 pg/mL High 2.50-3.90 [facility] Comment on above: Result Comment: PERF ORMED BY: [place] [address] PATHOLOGIST CLOUD DEVELOPER STEPHANIE STONE M.D. Performed By: #### P ILLAR CBC, PILLAR BMP, PILLAR LIPID, PILLAR TSH #### [place] [id number] [place] Triiodothyronine (T3) Free [ Mass/volume] in Serum or PlasmaOrdered By: Shahab Bunting on 03-07-2024 Free T3 [Mass/Vol] 4.90 pg/mL High 2.50-3.90 [facility] Free T3 [Mass/Vol] Triiodothyronine (T3 ) Free [Mass/volume] in Serum or Plasma High 2.50-3.90 [facility] US liveron 12-09-2023 liver [facility] Main [place] [id number] Ultrasound Report Signed Patient: Madeleine Rodriguez MR#: [id number] : 1985 Acct:[id number] Age/Sex: 38 / F ADM Date: 12/09/23 Loc: Room: Type: [facility] Attending Dr: Shahab Townsend DO Ordering Provider: Shaahb Townsend DO Date of Service: 12/09/23 US/US liver: HIGH LFT Copies to: Shahab Townsend DO EXAMINATION TYPE: US liver DATE OF EXAM ORDERED: 12/09/2023 7:02 AM HISTORY: Elevated liver enzymes COMPARISON: NONE TECHNIQUE: Realtime imaging limited to the right upper quadrant was performed. FINDINGS: Shadowing echogenic stones are noted in the gallbladder lumen. The common bile duct measures 2 mm in diameter. The gallbladder wall measures 2 mm in thickness. No intrahepatic or extrahepatic biliary dilatation is seen. The liver is echogenic in respect to the right renal cortex suggesting hepatic steatosis. Hepatopedal flow is noted in the main portal vein. Partial visualization of the right kidney reveals no gross hydronephrosis. Partial visualization of the pancreas reveals no abnormality. ? US/US liver IMPRESSION: Gallstones are present. No sonographic evidence of acute cholecystitis. Findings suggest hepatic steatosis. Impression dictated by: Dre Marshall M.D.12/09/2023 9:51 AM Dictation Location: [place] [address] Tech: Kamilah Blue Transcribed By: TRUNG 12/09/23950 Dictated By: Dre Marshall II, MD 12/09/23949 Signed By: 12/09/23950 Normal [facility] Alanine aminotransferase [En zymatic activity/volume] in Serum or PlasmaOrdered By: Shahab Townsend on 11-29-2023 ALT [Catalytic activity/Vol] 124 U/L High 752 [facility] Comment on above: Performed By: #### P ILLAR CBC, PILLAR BMP, PILLAR LIPID, PILLAR TSH #### [facility] [address] [place] [address] [place] Albumin [Mass/volume] in Ser um or Plasma by Bromocresol green (BCG) dye binding methoOrdered By: Shahab Bunting on 11-29-2023 Albumin BCG dye [Mass/Vol] 4.2 g/dL 3.5-5.7 [facility] Alkaline phosphatase [Enzyma tic activity/volume] in Serum or PlasmaOrdered By: Shahab Bunting on 11-29-2023 ALP [Catalytic activity/Vol] 55 U/L Normal 34-104 [facility] Comment on above: Performed By: #### P ILLAR CBC, PILLAR BMP, PILLAR LIPID, PILLAR TSH #### [facility] [address] [place] [address] [place] Aspartate aminotransferase [ Enzymatic activity/volume] in Serum or PlasmaOrdered By: Shahab Bunting on 11-29-2023 AST [Catalytic activity/Vol] 64 U/L High 13-39 [facility] Comment on above: Performed By: #### P ILLAR CBC, PILLAR BMP, PILLAR LIPID, PILLAR TSH #### [facility] [address] [place] [address] [place] Bilirubin.direct [Mass/volum e] in Serum or PlasmaOrdered By: Shahab Bunting on 11-29-2023 Bilirubin.direct [Mass/Vol] 0.30 mg/dL High 0.03-0.18 [facility] Bilirubin.total [Mass/volume ] in Serum or PlasmaOrdered By: Shahab Bunting on 11-29-2023 Bilirubin [Mass/Vol] 2.3 mg/dL High 0.3-1.0 [facility] Comment on above: Samples from patient s who have taken Naproxen have shown spurious elevation in Total Bilirubin levels. A metabolite of Naproxen, O-desmethylnaproxen, has been shown to interfere with the Jendrassik-Grof method for measuring Total Bilirubin. Result Comment: Samp les from patients who have taken Naproxen have shown spurious elevation in Total Bilirubin levels. A metabolite of Naproxen, O-desmethylnaproxen, has been shown to interfere with the Jendrassik-Grof method for measuring Total Bilirubin. Performed By: #### P ILLAR CBC, PILLAR BMP, PILLAR LIPID, PILLAR TSH #### [facility] [address] [place] [address] Hepatic Panelon 11-29-2023 Albumin [Mass/Vol] 4.2 g/dL Normal 3.5-5.7 [facility] Comment on above: Performed By: #### P ILLAR CBC, PILLAR BMP, PILLAR LIPID, PILLAR TSH #### [address] Bilirubin,Indirect 2.0 mg/dL Normal [facility] Comment on above: Performed By: #### P ILLAR CBC, PILLAR BMP, PILLAR LIPID, PILLAR TSH #### [address] Bilirubin.indirect [Mass/Vol] 0.30 mg/dL High 0.03-0.18 [facility] Comment on above: Performed By: #### P ILLAR CBC, PILLAR BMP, PILLAR LIPID, PILLAR TSH #### [address] Protein [Mass/volume] in Ser um or PlasmaOrdered By: Shahab Bunting on 11-29-2023 Protein [Mass/Vol] 6.9 g/dL Normal 6.4-8.9 [facility] Comment on above: Performed By: #### P ILLAR CBC, PILLAR BMP, PILLAR LIPID, PILLAR TSH #### [facility] [address] [place] [address] Serum globulin measurement b y calculation (mass/volume)Ordered By: Shahab Bunting on 11-29-2023 Globulin (S) [Mass/Vol] 2.7 g/dL Normal [facility] Comment on above: Performed By: #### P ILLAR CBC, PILLAR BMP, PILLAR LIPID, PILLAR TSH #### [address] Serum or plasma albumin/glob ulin mass ratioOrdered By: Shahab Bunting on 11-29-2023 Albumin/Globulin [Mass ratio] 1.6 {ratio} Normal [facility] Comment on above: Performed By: #### P ILLAR CBC, PILLAR BMP, PILLAR LIPID, PILLAR TSH #### [address] Serum or plasma non-glucuron idated bilirubin measurement (mass/volume)Ordered By: Shahab Bunting on 11-29-2023 Bilirubin.indirect [Mass/Vol] 2.0 mg/dL [facility] Thyrotropin [Units/volume] i n Serum or PlasmaOrdered By: Shahab Bunting on 11-29-2023 TSH Qn 0.20 m[IU]/L Low 0.45-5.33 [facility] Comment on above: Result Comment: PERF ORMED BY: [place] [address] PATHOLOGIST [employer]ELOPER STEPHANIE STONE M.D. Performed By: #### P ILLAR CBC, PILLAR BMP, PILLAR LIPID, PILLAR TSH #### [address] Thyroxine (T4) free [Mass/vo lume] in Serum or PlasmaOrdered By: Shahab Bunting on 11-29-2023 Free T4 [Mass/Vol] 1.42 ng/dL High 0.61-1.12 [facility] Comment on above: Performed By: #### P ILLAR CBC, PILLAR BMP, PILLAR LIPID, PILLAR TSH #### [address] Triiodothyronine (T3) Freeon 11-29-2023 Triiodothyronine (T3) Free 4.00 pg/mL High 2.50-3.90 [facility] Comment on above: Result Comment: PERF ORMED BY: [place] [address] PATHOLOGIST [employer] DEVELOPER STEPHANIE STONE M.D. Performed By: #### P ILLAR CBC, PILLAR BMP, PILLAR LIPID, PILLAR TSH #### [address] Triiodothyronine (T3) Free [ Mass/volume] in Serum or PlasmaOrdered By: Shahab Townsend on 11-29-2023 Free T3 [Mass/Vol] 4.00 pg/mL High 2.50-3.90 [facility] Automated basophil %Ordered By: Juan Zamudio on 10-18-2023 Basophils/100 WBC (Bld) 0.3 % Normal . [facility] Comment on above: Performed By: #### P ILLAR CBC, PILLAR BMP, PILLAR LIPID, PILLAR TSH #### [facility] [address] [place] [address] Automated basophil countOrde red By: Juan Zamudio on 10-18-2023 Basophils (Bld) [#/Vol] 0.0 10*3/uL Normal 0.0-0.2 [facility] Comment on above: Result Comment: PERF ORMED BY: [place] [address] PATHOLOGIST [employer] DEVELOPER STEPHANIE STONE M.D. Performed By: #### P ILLAR CBC, PILLAR BMP, PILLAR LIPID, PILLAR TSH #### [facility] [address] [place] [address] Automated blood monocyte cou ntOrdered By: Juan Zamudio on 10-18-2023 Monocytes (Bld) [#/Vol] 0.3 10*3/uL Normal 0.0-0.8 [facility] Comment on above: Performed By: #### P ILLAR CBC, PILLAR BMP, PILLAR LIPID, PILLAR TSH #### [facility] [address] [place] [address] Automated eosinophil %Ordere d By: Juan Zamudio on 10-18-2023 Eosinophils/100 WBC (Bld) 1.3 % Normal . [facility] Comment on above: Performed By: #### P ILLAR CBC, PILLAR BMP, PILLAR LIPID, PILLAR TSH #### [facility] [address] [place] [address] Automated eosinophil countOr dered By: Juan Zamudio on 10-18-2023 Eosinophils (Bld) [#/Vol] 0.1 10*3/uL Normal 0.0-0.45 [facility] Comment on above: Performed By: #### P ILLAR CBC, PILLAR BMP, PILLAR LIPID, PILLAR TSH #### [facility] [address] [place] [address] [place] Automated monocyte %Ordered By: Juan Zamudio on 10-18-2023 Monocytes/100 WBC (Bld) 7.6 % Normal . [facility] Comment on above: Performed By: #### P ILLAR CBC, PILLAR BMP, PILLAR LIPID, PILLAR TSH #### [facility] [address] Automated neutrophil %Ordere d By: Juan Zamudio on 10-18-2023 Neutrophils/100 WBC (Bld) 52.9 % Normal . [facility] Comment on above: Performed By: #### P ILLAR CBC, PILLAR BMP, PILLAR LIPID, PILLAR TSH #### [facility] [address] [place] [address] [place] Calcium [Mass/volume] in Ser um or PlasmaOrdered By: Juan Zamudio on 10-18-2023 Calcium [Mass/Vol] 9.2 mg/dL Normal 8.6-10.3 [facility] Comment on above: Performed By: #### P ILLAR CBC, PILLAR BMP, PILLAR LIPID, PILLAR TSH #### [facility] [address] [place] [address] [place] Carbon dioxide, total [Moles /volume] in Serum or PlasmaOrdered By: Juan Zamudio on 10-18-2023 CO2 [Moles/Vol] 23.0 mmol/L Normal 21.0-31.0 [facility] Comment on above: Performed By: #### P ILLAR CBC, PILLAR BMP, PILLAR LIPID, PILLAR TSH #### [facility] [address] [place] [address] [place] Chloride [Moles/volume] in S estelle or PlasmaOrdered By: Juan Zamudio on 10-18-2023 Chloride [Moles/Vol] 106 mmol/L Normal 98-107 [facility] Comment on above: Performed By: #### P ILLAR CBC, PILLAR BMP, PILLAR LIPID, PILLAR TSH #### [facility] [address] Cholesterol [Mass/volume] in Serum or PlasmaOrdered By: Juan Zamudio on 10-18-2023 Cholesterol [Mass/Vol] 161 mg/dL Normal 140-200 [facility] Comment on above: Chol less than 200 m g/dl low riskChol 201-239 mg/dl borderline riskChol 240 mg/dl and greater high risk Result Comment: Chol less than 200 mg/dl low risk Chol 201-239 mg/dl borderline risk Chol 240 mg/dl and greater high risk Performed By: #### P ILLAR CBC, PILLAR BMP, PILLAR LIPID, PILLAR TSH #### [facility] [address] Cholesterol in LDL Calc [Mas s/Vol]Ordered By: Juan Zamudio on 10-18-2023 Cholesterol in LDL [Mass/Vol] 73 mg/dL 0-100 [facility] Comment on above: LDL ATP III CLASSIFI CATIONLDL less than 100 mg/dL OptimalLDL 100-129 mg/dL Near or above optimalLDL 130-159 mg/dL Borderline highLDL 160-189 mg/dL HighLDL greater than 189 mg/dL Very high Cholesterol in VLDL Calc [Ma ss/Vol]Ordered By: Juan Zamudio on 10-18-2023 Cholesterol in VLDL [Mass/Vol] 25 mg/dL [facility] Creatinine [Mass/volume] in Serum or PlasmaOrdered By: Juan Zamudio on 10-18-2023 Creatinine [Mass/Vol] 0.70 mg/dL Normal 0.60-1.20 [facility] Comment on above: Performed By: #### P ILLAR CBC, PILLAR BMP, PILLAR LIPID, PILLAR TSH #### [facility] [address] Employee Basic Metabolic Walsh se 10-18-2023 GFR/1.73 sq M.predicted MDRD (S/P/Bld) [Vol rate/Area] mL/min/{1.73_m2} Normal [facility] Comment on above: Performed By: #### P ILLAR CBC, PILLAR BMP, PILLAR LIPID, PILLAR TSH #### [facility] [address] [place] [address] Employee Complete Blood Coun ton 10-18-2023 Mean Corpuscular HGB Conc 34.3 g/dL Normal 32.0-35.0 [facility] Comment on above: Performed By: #### P ILLAR CBC, PILLAR BMP, PILLAR LIPID, PILLAR TSH #### [address] NRBC% 0.2 /100{WBC} Normal 0-0.5 [facility] Comment on above: Performed By: #### P ILLAR CBC, PILLAR BMP, PILLAR LIPID, PILLAR TSH #### [address] Employee Lipid Profileon LDL Cholesterol,Calculated 73 mg/dL Normal 0-100 [facility] Comment on above: Result Comment: LDL ATP III CLASSIFICATION LDL less than 100 mg/dL Optimal LDL 100-129 mg/dL Near or above optimal LDL 130-159 mg/dL Borderline high LDL 160-189 mg/dL High LDL greater than 189 mg/dL Very high Performed By: #### P ILLAR CBC, PILLAR BMP, PILLAR LIPID, PILLAR TSH #### [address] Triglyceride w/Reflex 129 mg/dL Normal 0-149 [facility] Comment on above: Result Comment: TRIG ATP III CLASSIFICATION TRIG less than 150 mg/dL Normal TRIG 150-199 mg/dL Borderline high TRIG 200-500 mg/dL High TRIG greater than 500 mg/dL Very high Standard traceable to the Center for Disease Conrtrol and Prevention (CDC) test method. Performed By: #### P ILLAR CBC, PILLAR BMP, PILLAR LIPID, PILLAR TSH #### [address] VLDL CHOLESTEROL 25 mg/dL Normal [facility] Comment on above: Performed By: #### P ILLAR CBC, PILLAR BMP, PILLAR LIPID, PILLAR TSH #### [address] Employee Thyroid Stim Hormon amelia 10-18-2023 Employee Thyroid Stim Hormone 0.22 u[iU]/mL Low 0.45-5.33 [facility] Comment on above: Result Comment: PERF ORMED BY: [place] [address] PATHOLOGIST CLOU[employer] DEVELOPER STEPHANIE STONE M.D. Performed By: #### P ILLAR CBC, PILLAR BMP, PILLAR LIPID, PILLAR TSH #### [address] Erythrocyte distribution wid th [Ratio] by Automated countOrdered By: Juan Zamudio on 10-18-2023 Erythrocyte distribution width (RBC) [Ratio] 13.0 % Normal 11.9-15.3 [facility] Comment on above: Performed By: #### P ILLAR CBC, PILLAR BMP, PILLAR LIPID, PILLAR TSH #### [facility] [address] [place] [address] Erythrocytes [#/volume] in B lood by Automated countOrdered By: Juan Zamudio on 10-18-2023 RBC (Bld) [#/Vol] 4.76 10*6/uL Normal 3.60-5.00 [facility] Comment on above: Performed By: #### P ILLAR CBC, PILLAR BMP, PILLAR LIPID, PILLAR TSH #### [address] Glucose [Mass/volume] in Ser um or PlasmaOrdered By: Juan Zamudio on 10-18-2023 Glucose [Mass/Vol] 82 mg/dL Normal 70-100 [facility] Comment on above: Performed By: #### P ILLAR CBC, PILLAR BMP, PILLAR LIPID, PILLAR TSH #### [address] Hematocrit [Volume Fraction] of Blood by Automated countOrdered By: Juan Zamudio on 10-18-2023 Hematocrit (Bld) [Volume fraction] 42.1 % Normal 34.0-46.4 [facility] Comment on above: Performed By: #### P ILLAR CBC, PILLAR BMP, PILLAR LIPID, PILLAR TSH #### [facility] [address] [place] [address] [place] Hemoglobin [Mass/volume] in BloodOrdered By: Juan Zamudio on 10-18-2023 Hemoglobin (Bld) [Mass/Vol] 14.5 g/dL Normal 11.8-15.4 [facility] Comment on above: Performed By: #### P ILLAR CBC, PILLAR BMP, PILLAR LIPID, PILLAR TSH #### [facility] [address] Leukocytes [#/volume] correc reina for nucleated erythrocytes in Blood by Automated counOrdered By: Juan Zamudio on 10-18-2023 WBC corrected for nucl RBC Auto (Bld) [#/Vol] 4.0 10*3/uL 3.8-11.6 [facility] Leukocytes [#/volume] in Blo od by Automated countOrdered By: Juan Zamudio on 10-18-2023 WBC (Bld) [#/Vol] 4.0 10*3/uL Normal 3.8-11.6 [facility] Comment on above: Performed By: #### P ILLAR CBC, PILLAR BMP, PILLAR LIPID, PILLAR TSH #### [facility] [address] [place] [address] [place] Lymphocytes [#/volume] in Bl ood by Automated countOrdered By: Juan Zamudio on 10-18-2023 Lymphocytes (Bld) [#/Vol] 1.5 10*3/uL Normal 1.00-4.8 [facility] Comment on above: Performed By: #### P ILLAR CBC, PILLAR BMP, PILLAR LIPID, PILLAR TSH #### [facility] [address] [place] [address] [place] Lymphocytes/100 leukocytes i n Blood by Automated countOrdered By: Juan Zamudio on 10-18-2023 Lymphocytes/100 WBC (Bld) 37.9 % Normal . [facility] Comment on above: Performed By: #### P ILLAR CBC, PILLAR BMP, PILLAR LIPID, PILLAR TSH #### [facility] [address] [place] [address] MCH [Entitic mass] by Automa reina countOrdered By: Juan Zamudio on 10-18-2023 MCH (RBC) [Entitic mass] 30.4 pg Normal 24.7-34.3 [facility] Comment on above: Performed By: #### P ILLAR CBC, PILLAR BMP, PILLAR LIPID, PILLAR TSH #### [facility] [address] [place] [address] MCHC Auto (RBC) [Mass/Vol]Or dered By: Juan Zamudio on 10-18-2023 MCHC (RBC) [Mass/Vol] 34.3 g/dL 32.0-35.0 [facility] MCV [Entitic volume] by Auto mated countOrdered By: Juan Zamudio on 10-18-2023 MCV (RBC) [Entitic vol] 88.4 fL Normal 80-100 [facility] Comment on above: Performed By: #### P ILLAR CBC, PILLAR BMP, PILLAR LIPID, PILLAR TSH #### [facility] [address] [place] [address] Neutrophils [#/volume] in Bl ood by Automated countOrdered By: Juan Zamudio on 10-18-2023 Neutrophils (Bld) [#/Vol] 2.1 10*3/uL Normal 1.8-7.7 [facility] Comment on above: Performed By: #### P ILLAR CBC, PILLAR BMP, PILLAR LIPID, PILLAR TSH #### [facility] [address] [place] [address] No Panel InformationOrdered By: Juan Zamudio on 10-18-2023 Estimated GFR (CKD-EPI) > 60.0 mL/Min [facility] Creatinine Clearance (Chem N/A [facility] Nucleated erythrocytes [Pres ence] in Blood by Automated countOrdered By: Juan Zamudio on 10-18-2023 Nucleated RBC Auto Ql (Bld) 0.2 /100{WBC} 0-0.5 [facility] Platelet mean volume [Entiti c volume] in Blood by Automated countOrdered By: Juan Zamudio on 10-18-2023 Platelet mean volume (Bld) [Entitic vol] 8.4 fL Normal 6.3-10.7 [facility] Comment on above: Performed By: #### P ILLAR CBC, PILLAR BMP, PILLAR LIPID, PILLAR TSH #### [facility] [address] Platelets [#/volume] in Bloo d by Automated countOrdered By: Juan Zamudio on 10-18-2023 Platelets (Bld) [#/Vol] 179 10*3/uL Normal 150-450 [facility] Comment on above: Performed By: #### P ILLAR CBC, PILLAR BMP, PILLAR LIPID, PILLAR TSH #### [facility] [address] [place] [address] Potassium [Moles/volume] in Serum or PlasmaOrdered By: Juan Zamudio on 10-18-2023 Potassium [Moles/Vol] 4.0 mmol/L Normal 3.5-5.1 [facility] Comment on above: Performed By: #### P ILLAR CBC, PILLAR BMP, PILLAR LIPID, PILLAR TSH #### [facility] [address] [place] [address] Serum or plasma anion gap de terminationOrdered By: Juan Zamudio on 10-18-2023 Anion gap [Moles/Vol] 12.0 mmol/L Normal 6.0-15.0 [facility] Comment on above: Performed By: #### P ILLAR CBC, PILLAR BMP, PILLAR LIPID, PILLAR TSH #### [facility] [address] [place] [address] Serum or plasma high density lipoprotein (HDL) cholesterol measurementOrdered By: Juan Zamudio on 10-18-2023 Cholesterol in HDL [Mass/Vol] 62 mg/dL Normal 23-92 [facility] Comment on above: HDL CHOL ATP-III CLA SSIFICATION Cardiovascular RiskHDL > or equal to 60 mg/dL LOWHDL < 40 mg/dL HIGH Result Comment: HDL CHOL ATP-III CLASSIFICATION Cardiovascular Risk HDL > or equal to 60 mg/dL LOW HDL < 40 mg/dL HIGH Performed By: #### P ILLAR CBC, PILLAR BMP, PILLAR LIPID, PILLAR TSH #### [facility] [address] Serum or plasma total choles terol/high density lipoprotein (HDL) cholesterol mass ratOrdered By: Juan Zamudio on 10-18-2023 Cholesterol.total/Katty sterol in HDL [Mass ratio] 2.6 {ratio} Normal <5.0 [facility] Comment on above: Performed By: #### P ILLAR CBC, PILLAR BMP, PILLAR LIPID, PILLAR TSH #### [facility] [address] Sodium [Moles/volume] in Ser um or PlasmaOrdered By: Juan Zamudio on 10-18-2023 Sodium [Moles/Vol] 137 mmol/L Normal 136-145 [facility] Comment on above: Performed By: #### P ILLAR CBC, PILLAR BMP, PILLAR LIPID, PILLAR TSH #### [facility] [address] Thyrotropin [Units/volume] i n Serum or PlasmaOrdered By: Juan Zamudio on 10-18-2023 TSH Qn 0.22 m[IU]/L Low 0.45-5.33 [facility] Triglyceride [Mass/volume] i n Serum or PlasmaOrdered By: Juan Zamudio on 10-18-2023 Triglyceride [Mass/Vol] 129 mg/dL 0-149 [facility] Comment on above: TRIG ATP III CLASSIF ICATIONTRIG less than 150 mg/dL NormalTRIG 150-199 mg/dL Borderline highTRIG 200-500 mg/dL High TRIG greater than 500 mg/dL Very highStandard traceable to the Center for Disease Conrtrol and Prevention (CDC) test method. Urea nitrogen [Mass/volume] in Serum or PlasmaOrdered By: Juan Zamudio on 10-18-2023 Urea nitrogen [Mass/Vol] 13 mg/dL Normal 7-25 [facility] Comment on above: Performed By: #### P ILLAR CBC, PILLAR BMP, PILLAR LIPID, PILLAR TSH #### [facility] [address] [place] [address] MM screening mammo BI w/CADo n 08-05-2023 MM screening mammo BI w/CAD [facility] [place] [address] [place] [address] Mammography Report Signed Patient: Madeleine Rodriguez MR#: [id number] : 1985 Acct:[id number] Age/Sex: 38 / F ADM Date: 08/04/23 Loc: DC Room: Type: [facility] Attending Dr: Phani Carvajal Copies to: Phani Townsend DO Ordering Provider: Phani Carvajal Date of Service: 08/04/23 MM/MM screening mammo BI w/CAD: SCREENING CLINICAL DATA: Screening for malignancy. BILATERAL SCREENING MAMMOGRAMS - FULL FIELD DIGITAL WITH TOMOSYNTHESIS AND CAD Routine and tomosynthesis craniocaudal and mediolateral oblique views of both breasts were obtained using low-dose digital technique. Comparison is made to the prior study from March 12, 2016. This examination was reviewed with the aid of CAD. The breast parenchyma is heterogeneously dense. There is asymmetric tissue at the tail of [place] on the left. A few benign calcifications are noted. There are no developing masses, typically malignant calcifications or architectural distortion. There has been no significant interval change. MM/MM screening mammo BI w/CAD IMPRESSION: NO MAMMOGRAPHIC EVIDENCE OF MALIGNANCY. ROUTINE FOLLOW-UP IS RECOMMENDED IN ONE YEAR. RESULT CODE: 2 Benign Findings(s) DENSITY CODE: 3 (approximately 51-75% glandular) FOLLOW UP: 1YR The false-negative rate of mammography is approximately 10-percent. Management of a palpable abnormality must be based on clinical grounds. Patient was entered into a reminder system with a target due date for the next mammogram. Impression dictated by: Rhonda Sparrow M.D.08/05/2023 9:55 AM Dictation Location: [facility] Transcribed By: [facility] 08/05/23954 Dictated By: Rhonda Sparrow MD 08/05/23951 Signed By: 08/05/23954 Normal [facility] Alanine aminotransferase [En zymatic activity/volume] in Serum or PlasmaOrdered By: Juan Zamudio on 06-05-2023 ALT [Catalytic activity/Vol] 67 U/L 7-52 [facility] Albumin [Mass/volume] in Ser um or Plasma by Bromocresol green (BCG) dye binding methoOrdered By: Juan Zamudio on 10-11-2022 Albumin BCG dye [Mass/Vol] 4.5 g/dL 3.5-5.7 [facility] Alkaline phosphatase [Enzyma tic activity/volume] in Serum or PlasmaOrdered By: Juan Zamudio on 10-11-2022 ALP [Catalytic activity/Vol] 45 U/L 34-104 [facility] Aspartate aminotransferase [ Enzymatic activity/volume] in Serum or PlasmaOrdered By: Juan Zamudio on 10-11-2022 AST [Catalytic activity/Vol] 41 U/L 13-39 [facility] Basophils Auto (Bld) [#/Vol] Ordered By: Juan Zamudio on 10-11-2022 Basophils (Bld) [#/Vol] 0.0 10*3/uL 0.0-0.2 [facility] Basophils/100 WBC Auto (Bld) Ordered By: Juan Zamudio on 10-11-2022 Basophils/100 WBC (Bld) 0.4 % . [facility] Bilirubin.total [Mass/volume ] in Serum or PlasmaOrdered By: Juan Zamudio on 10-11-2022 Bilirubin [Mass/Vol] 2.8 mg/dL 0.3-1.0 [facility] Comment on above: Samples from patient s who have taken Naproxen have shown spurious elevation in Total Bilirubin levels. A metabolite of Naproxen, O-desmethylnaproxen, has been shown to interfere with the Dee-Amparo method for measuring Total Bilirubin. Calcium [Mass/volume] in Ser um or PlasmaOrdered By: Juan Zamudio on 10-11-2022 Calcium [Mass/Vol] 9.2 mg/dL 8.6-10.3 [facility] Carbon dioxide, total [Moles /volume] in Serum or PlasmaOrdered By: Juan Zamudio on 10-11-2022 CO2 [Moles/Vol] 24.1 mmol/L 21.0-31.0 [facility] Chloride [Moles/volume] in S estelle or PlasmaOrdered By: Juan Zamudio on 10-11-2022 Chloride [Moles/Vol] 105 mmol/L 98-107 [facility] Cholesterol [Mass/volume] in Serum or PlasmaOrdered By: Juan Zamudio on 10-11-2022 Cholesterol [Mass/Vol] 146 mg/dL 140-200 [facility] Comment on above: Chol less than 200 m g/dl low riskChol 201-239 mg/dl borderline riskChol 240 mg/dl and greater high risk Cholesterol in LDL Calc [Mas s/Vol]Ordered By: Juan Zamudio on 10-11-2022 Cholesterol in LDL [Mass/Vol] 55 mg/dL 0-100 [facility] Comment on above: LDL ATP III CLASSIFI CATIONLDL less than 100 mg/dL OptimalLDL 100-129 mg/dL Near or above optimalLDL 130-159 mg/dL Borderline highLDL 160-189 mg/dL HighLDL greater than 189 mg/dL Very high Cholesterol in VLDL Calc [Ma ss/Vol]Ordered By: Juan Zamudio on 10-11-2022 Cholesterol in VLDL [Mass/Vol] 24 mg/dL [facility] Creatinine [Mass/volume] in Serum or PlasmaOrdered By: Juan Zamudio on 10-11-2022 Creatinine [Mass/Vol] 0.64 mg/dL 0.60-1.20 [facility] Eosinophils Auto (Bld) [#/Vo l]Ordered By: Juan Zamudio on 10-11-2022 Eosinophils (Bld) [#/Vol] 0.0 10*3/uL 0.0-0.45 [facility] Eosinophils/100 WBC Auto (Bl d)Ordered By: Juan Zamudio on 10-11-2022 Eosinophils/100 WBC (Bld) 1.4 % . [facility] Erythrocyte distribution wid th Auto (RBC) [Ratio]Ordered By: Juan Zamudio on 10-11-2022 Erythrocyte distribution width (RBC) [Ratio] 13.4 % 11.9-15.3 [facility] Globulin Calc (S) [Mass/Vol] Ordered By: Juan Zamudio on 10-11-2022 Globulin (S) [Mass/Vol] 2.3 g/dL [facility] Glucose [Mass/volume] in Ser um or PlasmaOrdered By: Juan Zamudio on 10-11-2022 Glucose [Mass/Vol] 78 mg/dL 70-100 [facility] Hematocrit Auto (Bld) [Volum e fraction]Ordered By: Juan Zamudio on 10-11-2022 Hematocrit (Bld) [Volume fraction] 38.3 % 34.0-46.4 [facility] Hemoglobin [Mass/volume] in BloodOrdered By: Juan Zamudio on 10-11-2022 Hemoglobin (Bld) [Mass/Vol] 13.4 g/dL 11.8-15.4 [facility] Leukocytes [#/volume] correc reina for nucleated erythrocytes in Blood by Automated counOrdered By: Juan Zamudio on 10-11-2022 WBC corrected for nucl RBC Auto (Bld) [#/Vol] 2.9 10*3/uL 3.8-11.6 [facility] Lymphocytes Auto (Bld) [#/Vo l]Ordered By: Juan Zamudio on 10-11-2022 Lymphocytes (Bld) [#/Vol] 1.3 10*3/uL 1.00-4.8 [facility] Lymphocytes/100 WBC Auto (Bl d)Ordered By: Juan Zamudio on 10-11-2022 Lymphocytes/100 WBC (Bld) 43.7 % . [facility] MCH Auto (RBC) [Entitic mass ]Ordered By: Juan Zamudio on 10-11-2022 MCH (RBC) [Entitic mass] 31.5 pg 24.7-34.3 [facility] [facility] MCHC Auto (RBC) [Mass/Vol]Or dered By: Juan Zamudio on 10-11-2022 MCHC (RBC) [Mass/Vol] 34.9 g/dL 32.0-35.0 [facility] MCV Auto (RBC) [Entitic vol] Ordered By: Juan Zamudio on 10-11-2022 MCV (RBC) [Entitic vol] 90.4 fL 80-100 [facility] Monocytes Auto (Bld) [#/Vol] Ordered By: Juan Zamudio on 10-11-2022 Monocytes (Bld) [#/Vol] 0.3 10*3/uL 0.0-0.8 [facility] Monocytes/100 WBC Auto (Bld) Ordered By: Juan Zamudio on 10-11-2022 Monocytes/100 WBC (Bld) 9.0 % . [facility] Neutrophils Auto (Bld) [#/Vo l]Ordered By: Juan Zamudio on 10-11-2022 Neutrophils (Bld) [#/Vol] 1.3 10*3/uL 1.8-7.7 [facility] Neutrophils/100 WBC Auto (Bl d)Ordered By: Juan Zamudio on 10-11-2022 Neutrophils/100 WBC (Bld) 45.5 % . [facility] No Panel InformationOrdered By: Juan Zamudio on 10-11-2022 Estimated GFR (CKD-EPI) > 60.0 mL/Min [facility] Creatinine Clearance (Chem N/A [facility] Nucleated erythrocytes [Pres ence] in Blood by Automated countOrdered By: Juan Zamudio on 10-11-2022 Nucleated RBC Auto Ql (Bld) 0.6 /100{WBC} 0-0.5 [facility] Platelet mean volume Auto (B ld) [Entitic vol]Ordered By: Juan Zamudio on 10-11-2022 Platelet mean volume (Bld) [Entitic vol] 8.0 fL 6.3-10.7 [facility] Platelets Auto (Bld) [#/Vol] Ordered By: Juan Zamudio on 10-11-2022 Platelets (Bld) [#/Vol] 148 10*3/uL 150-450 [facility] Potassium [Moles/volume] in Serum or PlasmaOrdered By: Juan Zamudio on 10-11-2022 Potassium [Moles/Vol] 4.8 mmol/L 3.5-5.1 [facility] Protein [Mass/volume] in Ser um or PlasmaOrdered By: Juan Zamudio on 10-11-2022 Protein [Mass/Vol] 6.8 g/dL 6.4-8.9 [facility] RBC Auto (Bld) [#/Vol]Ordere d By: Juan Zamudio on 10-11-2022 RBC (Bld) [#/Vol] 4.24 10*6/uL 3.60-5.00 [facility] Serum or plasma albumin/glob ulin mass ratioOrdered By: Juan Zamudio on 10-11-2022 Albumin/Globulin [Mass ratio] 2.0 {ratio} [facility] Serum or plasma anion gap de terminationOrdered By: Juan Zamudio on 10-11-2022 Anion gap [Moles/Vol] 12.7 mmol/L 6.0-15.0 [facility] Serum or plasma high density lipoprotein (HDL) cholesterol measurementOrdered By: Juan Zamudio on 10-11-2022 Cholesterol in HDL [Mass/Vol] 67 mg/dL 23-92 [facility] Comment on above: HDL CHOL ATP-III CLA SSIFICATION Cardiovascular RiskHDL > or equal to 60 mg/dL LOWHDL < 40 mg/dL HIGH Serum or plasma total choles terol/high density lipoprotein (HDL) cholesterol mass ratOrdered By: Juan Zamudio on 10-11-2022 Cholesterol.total/Katty sterol in HDL [Mass ratio] 2.2 {ratio} <5.0 [facility] Sodium [Moles/volume] in Ser um or PlasmaOrdered By: Juan Zamudio on 10-11-2022 Sodium [Moles/Vol] 137 mmol/L 136-145 [facility] Thyrotropin [Units/volume] i n Serum or PlasmaOrdered By: Juan Zamudio on 10-11-2022 TSH Qn 1.01 m[IU]/L 0.45-5.33 [facility] Triglyceride [Mass/volume] i n Serum or PlasmaOrdered By: Juan Zamudio on 10-11-2022 Triglyceride [Mass/Vol] 120 mg/dL 0-149 [facility] Comment on above: TRIG ATP III CLASSIF ICATIONTRIG less than 150 mg/dL NormalTRIG 150-199 mg/dL Borderline highTRIG 200-500 mg/dL High TRIG greater than 500 mg/dL Very highStandard traceable to the Center for Disease Conrtrol and Prevention (CDC) test method. Urea nitrogen [Mass/volume] in Serum or PlasmaOrdered By: Juan Zamudio on 10-11-2022 Urea nitrogen [Mass/Vol] 20 mg/dL 7-25 [facility] WBC Auto (Bld) [#/Vol]Ordere d By: Juan Zamudio on 10-11-2022 WBC (Bld) [#/Vol] 2.9 10*3/uL 3.8-11.6 [facility] Pap IG, rfx Aptima HPV ASCUo n 11-12-2021 . . Normal [facility] Comment on above: Performed By: #### P [id number] #### [facility] [address] [address] [address] Davy Echevarria DIAGNOSIS: Comment Abnormal [facility] Comment on above: Result Comment: EPIT HELIAL CELL ABNORMALITY. ATYPICAL SQUAMOUS CELLS OF UNDETERMINED SIGNIFICANCE (ASC-US). Performed By: #### P [id number] #### [facility] [address] [address] [address] Davy Echevarria Electronically signed by: Comment Normal [facility] Comment on above: Result Comment: Laurence Alford MD, Pathologist Performed By: #### P [id number] #### [facility] [address] [address] [address] Davy Echevarria HPV Aptima Negative Normal Negative [facility] Comment on above: Result Comment: This nucleic acid amplification test detects fourteen high-risk HPV types (16,18,31,33,35,39,45,51,52,56,58,59,66,68) without differentiation. Performed By: #### P [id number] #### [facility] [address] [address] [address] Davy Echevarria Methodology: Comment Normal [facility] Comment on above: Result Comment: This liquid based ThinPrep(R) pap test was screened with the use of an image guided system. Performed By: #### P [id number] #### [facility] [address] [place] [address] Dr. Davy Echevarria Note: Comment Normal [facility] Comment on above: Result Comment: The Pap smear is a screening test designed to aid in the detection of premalignant and malignant conditions of the uterine cervix. It is not a diagnostic procedure and should not be used as the sole means of detecting cervical cancer. Both false-positive and false-negative reports do occur. . Performed By: #### P [id number] #### [facility] [address] [address] [address] Davy Echevarria Pathologist Provided ICD10 Comment [facility] Comment on above: Result Comment: R87. 610 Performed By: #### P [id number] #### [facility] [address] [address] [address] Davy Echevarria Performed by: Comment Normal [facility] Comment on above: Result Comment: Talisha Lozano, Convertible Power Shovel Operator (ASCP) Performed By: #### P [id number] #### [facility] [address] [address] [address] Davy Echevarria Recommendation: Comment Abnormal [facility] Comment on above: Result Comment: Sugg est follow up as clinically appropriate. Performed By: #### P [id number] #### [facility] [address] [place] [address] Dr. Davy Echevarria Reflex Criteria: Comment [facility] Comment on above: Result Comment: See below for HPV testing results. . Performed By: #### P APHR7A #### [facility] [address] [place] [address] Dr. Davy Echevarria Specimen adequacy: Comment [facility] Comment on above: Result Comment: Sati sfactory for evaluation. No endocervical component is identified. Performed By: #### P [id number] #### [facility] [address] [place] [address] Dr. Davy Echevarria PAP ACOG PANEL 2: 30 to 65on 06-03-2021 . . Normal [facility] Comment on above: Result Comment: Perf ormed at: WB Performed By: #### [id number] #### [facility] [address] [place] [address] Dr. Davy Echevarria Age Gdln ACOG Testing 30-65 [facility] Comment on above: Performed By: #### [id number] #### [facility] [address] [place] [address] Dr. Davy Echevarria DIAGNOSIS: Comment Abnormal [facility] Comment on above: Result Comment: EPIT HELIAL CELL ABNORMALITY. ATYPICAL SQUAMOUS CELLS OF UNDETERMINED SIGNIFICANCE (ASC-US). Performed at: WB Performed By: #### [id number] #### [facility] [address] [place] [address] Dr. Davy Echevarria Electronically signed by: Comment Normal [facility] Comment on above: Result Comment: Sia Dyer MD, Pathologist Performed at: WB Performed By: #### [id number] #### [facility] [address] [place] [address] Dr. Davy Echevarria HPV Aptima Negative Normal Negative [facility] Comment on above: Result Comment: This nucleic acid amplification test detects fourteen high-risk HPV types (16,18,31,33,35,39,45,51,52,56,58,59,66,68) without differentiation. Performed at: =G Performed By: #### [id number] #### [facility] [address] [place] [address] Dr. Davy Echevarria Methodology: Comment Normal [facility] Comment on above: Result Comment: This liquid based ThinPrep(R) pap test was screened with the use of an image guided system. Performed at: WB Performed By: #### [id number] #### [facility] [address] [place] [address] Dr. Davy Echevarria Note: Comment Normal [facility] Comment on above: Result Comment: The Pap smear is a screening test designed to aid in the detection of premalignant and malignant conditions of the uterine cervix. It is not a diagnostic procedure and should not be used as the sole means of detecting cervical cancer. Both false-positive and false-negative reports do occur. . Performed at: WB Performed By: #### [id number] #### [facility] [address] [place] [address] Dr. Davy Echevarria Pathologist Provided ICD10 Comment Normal [facility] Comment on above: Result Comment: R87. 610 Performed at: WB Performed By: #### [id number] #### [facility] [address] [place] [address] Dr. Davy Echevarria Performed by: Comment Normal [facility] Comment on above: Result Comment: Mouna Thomas, Convertible Power Shovel Operator (ASCP) Performed at: WB Performed By: #### [id number] #### [facility] [address] [place] [address] Dr. Davy Echevarria Recommendation: Comment Abnormal [facility] Comment on above: Result Comment: Sugg est follow up as clinically appropriate. Performed at: WB Performed By: #### [id number] #### [facility] [address] [address] [address] Davy Echevarria Specimen adequacy: Comment Normal [facility] Comment on above: Result Comment: Sati sfactory for evaluation. No endocervical component is identified. Performed at: WB Performed By: #### [id number] #### [facility] [address] [place] [address] Dr. Davy Echevarria Pap IG,rfx Aptima HPV all pt hon 12-03-2020 . . Normal [facility] Comment on above: Performed By: #### P [id number] #### [facility] [address] [place] [address] Jorgito Ellis DIAGNOSIS: Comment Abnormal [facility] Comment on above: Result Comment: EPIT HELIAL CELL ABNORMALITY. LOW-GRADE SQUAMOUS INTRAEPITHELIAL LESION (LGSIL); MILD DYSPLASIA IS PRESENT (VAGINAL). Performed By: #### P [id number] #### [facility] [address] [place] [address] Jorgito Ellis Electronically signed by: Comment Normal [facility] Comment on above: Result Comment: Laurence Alford MD, Pathologist Performed By: #### P [id number] #### [facility] [address] [place] [address] Jorgito Ellis HPV Aptima Negative Normal Negative [facility] Comment on above: Result Comment: This nucleic acid amplification test detects fourteen high-risk HPV types (16,18,31,33,35,39,45,51,52,56,58,59,66,68) without differentiation. Performed By: #### P [id number] #### [facility] [address] [place] [address] Jorgito Ellis Methodology: Comment Normal [facility] Comment on above: Result Comment: This liquid based ThinPrep(R) pap test was screened with the use of an image guided system. Performed By: #### P APH11A #### [facility] [address] [place] [address] Jorgito Ellis Note: Comment Normal [facility] Comment on above: Result Comment: The Pap smear is a screening test designed to aid in the detection of premalignant and malignant conditions of the uterine cervix. It is not a diagnostic procedure and should not be used as the sole means of detecting cervical cancer. Both false-positive and false-negative reports do occur. . Performed By: #### P [id number] #### [facility] [address] [place] [address] Jorgito Ellis Pathologist Provided ICD10 Comment Normal [facility] Comment on above: Result Comment: R87. 622 Performed By: #### P [id number] #### [facility] [address] [place] [address] Jorgito Ellis Performed by: Comment Normal [facility] Comment on above: Result Comment: Berta Puentes, Convertible Power Shovel Operator (ASCP) Performed By: #### P APH11A #### [facility] [address] [place] [address] Jorgito Ellis Recommendation: Comment Abnormal [facility] Comment on above: Result Comment: Sugg est follow up as clinically appropriate. Performed By: #### P APH11A #### [facility] [address] [place] [address] Jorgito Ellis Reflex Criteria: Comment Normal [facility] Comment on above: Result Comment: See below for HPV testing results. . Performed By: #### P APH11A #### [facility] [address] [place] [address] Jorgito Ellis Specimen adequacy: Comment Normal [facility] Comment on above: Result Comment: Sati sfactory for evaluation. No endocervical cells are present. This is consistent with a history of hysterectomy. Performed By: #### P [id number] #### [facility] [address] [place] [address] Jorgito Ellis Vital Signs Date Time Vital Sign Value Performing Clinician Ketan french 05-22-2024 13:50-0500 Body height 162.56 cm Shahab Bunting DO Work Phone: [facility] 05-22-2024 13:50-0500 Body mass index (BMI) [Ratio] 22.3 kg/m2 Shahab Bunting DO Work Phone: [facility] 05-22-2024 13:50-0500 Body weight 58.96 kg Shahab Bunting DO Work Phone: 2(633)927-459125 [place] [address] 05-03-2024 09:35-0500 Diastolic blood pressure 81 mm[Hg] Shahab Bunting DO Work Phone: 2(673)804-094225 [place] [address] 05-03-2024 09:35-0500 Heart rate 74 /min Shahab Bunting DO Work Phone: 8(152)366-425225 [place] [address] 05-03-2024 09:35-0500 Respiratory rate 16 /min Shahab Bunting DO Work Phone: 4(041)828-518625 [place] [address] 05-03-2024 09:35-0500 SaO2% (BldA) [Mass fraction] 100 % Shahab Bunting DO Work Phone: [facility] 05-03-2024 09:35-0500 Systolic blood pressure 119 mm[Hg] Shahab Bunting DO Work Phone: [facility] 05-03-2024 08:15-0500 Body height 162.56 cm Shahab Bunting DO Work Phone: 9(670)133-586425 [place] [address] 05-03-2024 08:15-0500 Body weight 58.96 kg Shahab Bunting DO Work Phone: [facility] 04-17-2024 13:20-0500 Body height 162.56 cm Shahab Bunting DO Work Phone: [facility] 04-17-2024 13:20-0500 Body mass index (BMI) [Ratio] 22.3 kg/m2 Shahab Bunting DO Work Phone: [facility] 04-17-2024 13:20-0500 Body weight 58.96 kg Shahab Bunting DO Work Phone: [facility] 03-13-2024 12:49-0500 Body height 162.56 cm DO Shahab Bunting Work Phone: [facility] 03-13-2024 12:49-0500 Body mass index (BMI) [Ratio] 20.5 kg/m2 DO Shahab Bunting Work Phone: [facility] 03-13-2024 12:49-0500 Body weight 54.43 kg DO Shahab Bunting Work Phone: [facility] Encounters Encounter Date Encounter Type Care Provider Facility Start: 07-02-2024 End: 07-02-2024 Bamboo flowsheet Phani Wei DO Work Phone: [facility] Start: 07-02-2024 End: 07-02-2024 Bamboo flowsheet Phani Wei DO Work Phone: [facility] Start: 06-20-2024 End: 06-20-2024 Patient encounter procedure Shahab Bunting DO Work Phone: [facility] [place] Work Phone: Start: 06-20-2024 End: 06-20-2024 ambulatory Shahab Bunting DO Work Phone: [facility] Work Phone: Start: 06-08-2024 End: 06-08-2024 Patient encounter procedure Shahab Bunting DO Work Phone: [facility] [place] Work Phone: Start: 06-08-2024 End: 06-08-2024 ambulatory Shahab Bunting DO Work Phone: [facility] Work Phone: Start: 06-06-2024 End: 06-06-2024 Patient encounter procedure Shahab Bunting DO Work Phone: [facility] [place] Work Phone: Start: 06-06-2024 End: 06-06-2024 ambulatory Shahab Bunting DO Work Phone: [facility] Work Phone: Start: 05-22-2024 End: 05-22-2024 ambulatory Shahab Bunting DO Work Phone: [facility] Work Phone: Start: 05-22-2024 End: 05-22-2024 Patient encounter procedure Shahab Bunting DO Work Phone: [facility] Work Phone: Start: 05-03-2024 End: 05-03-2024 Admission to same day surgery center Shahab Bunting DO Work Phone: [facility] [place] Work Phone: Start: 05-03-2024 End: 05-03-2024 ambulatory Shahab Bunting Facility:[facility] Start: 04-17-2024 End: 04-17-2024 ambulatory Imad Asaad Facility:[facility] Start: 04-17-2024 End: 04-17-2024 Patient encounter procedure Shahab Bunting DO Work Phone: [facility] [place] Work Phone: Start: 04-04-2024 End: 04-04-2024 Patient encounter procedure Shahab Bunting DO Work Phone: [facility]-Digestive Health Work Phone: Start: 04-04-2024 End: 04-04-2024 ambulatory Imad Asaad Facility:[facility] Start: 03-13-2024 End: 03-13-2024 ambulatory DO Shahab Bunting Work Phone: [facility] Work Phone: Start: 03-13-2024 End: 03-13-2024 Patient encounter procedure DO Shahab Bunting Work Phone: [facility] Work Phone: Start: 03-07-2024 End: 03-07-2024 Patient encounter procedure DO Shahab Bunting Work Phone: [facility] [place] Work Phone: Start: 03-07-2024 End: 03-07-2024 ambulatory DO Shahab Bunting Work Phone: [facility] Work Phone: Start: 12-09-2023 End: 12-09-2023 Patient encounter procedure DO Shahab Bunting Work Phone: [facility] [place] Work Phone: Start: 12-09-2023 End: 12-09-2023 ambulatory DO Shahab Bunting Work Phone: [facility] Work Phone: Start: 11-29-2023 End: 11-29-2023 Patient encounter procedure DO Shahab Bunting Work Phone: [facility] [place] Work Phone: Start: 11-29-2023 End: 11-29-2023 ambulatory DO Shahab Bunting Work Phone: [facility] Work Phone: Start: 10-18-2023 End: 10-18-2023 Departed Referred DO Shahab Bunting Work Phone: [facility] [place] Start: 10-18-2023 End: 10-18-2023 ambulatory DO Shahab Bunting Work Phone: [facility] Work Phone: Start: 08-04-2023 End: 08-04-2023 Patient encounter procedure DO Shahab Bunting Work Phone: [facility] Work Phone: Start: 08-04-2023 End: 08-04-2023 ambulatory DO Hsahab Bunting Work Phone: [facility] Work Phone: Start: 06-27-2023 End: 06-27-2023 ambulatory PHANI CARVAJAL Not Available Start: 02-22-2023 End: 02-22-2023 ambulatory DO Shahab Bunting Work Phone: [facility] Work Phone: Start: 02-22-2023 End: 02-22-2023 Patient encounter procedure DO Shahab Bunting Work Phone: [facility]-Flu Vaccine Start: 10-11-2022 End: 10-11-2022 ambulatory DO Shahab Bunting Work Phone: [facility] Work Phone: Start: 10-11-2022 End: 10-11-2022 Departed Referred DO Shahab Bunting Work Phone: [facility]-Employee Benefit Screening Start: 11-06-2021 Encounter for cervical smear to confirm findings of recent normal smear following initial abnormal smear DR PHANI CARVAJAL [facility] Start: 11-05-2021 End: 11-05-[address] PHANI CARVAJAL Facility:[facility] Start: 11-05-2021 End: 11-05-2021 Encounter for cervical smear to confirm findings of recent normal smear following initial abnormal smear DR PHANI CARVAJAL Facility:[facility] Start: 05-29-2021 End: 05-29-[address] PHANI CARVAJAL Facility:[facility] Start: 11-26-2020 End: 11-26-[address] PHANI CARVAJAL Facility:[facility] Procedures Date Procedure Procedure Detail Performing Clinician Start: 05-03-2024 Ultrasonic guidance for needle biopsy Shahab Bunting DO Work Phone: Start: 04-04-2024 Ultrasound elastogra phy of liver Shahab Townsend DO Work Phone: Start: 12-09-2023 Ultrasonography of liver DO Shahab Townsend Work Phone: Start: 08-09-2023 Mammography Phani mckeon [facility] Work Phone: Start: 08-04-2023 Screening mammograph y of bilateral breasts DO Shahab Townsend Work Phone: Start: 06-27-2023 Microscopic observat ion [Identifier] in Cervix by Cyto stain Phani Carvajal [facility] Work Phone: Plan of Treatment Date Care Activity Detail Author Start: 05-12-2027 Screening for malign ant neoplasm of cervix [facility] Start: 06-27-2026 Screening for malign ant neoplasm of cervix Pap Smear [facility] Start: 08-08-2024 Screening for malign ant neoplasm of breast Mammogram [facility] Start: 07-02-2024 End: 07-02-2024 Patient encounter procedure 07/02/2024 10:00 AM EST Office Visit [facility] [address] [place] [address] Phani Carvajal, [address] [place] [address] Arrived [facility] Comment on above: Arrived Start: 06-20-2024 IgG [Mass/volume] in Serum or Plasma [facility] Start: 06-06-2024 IgG [Mass/volume] in Serum or Plasma [facility] Start: 05-03-2024 [facility] Start: 03-13-2024 Actin smooth muscle IgG Ab [Units/volume] in Serum [facility] Start: 03-13-2024 Ceruloplasmin [Mass/volume] in Serum or Plasma [facility] Start: 03-13-2024 Hepatitis A virus Ab [Presence] in Serum by Immunoassay [facility] Start: 03-13-2024 Hepatitis A virus antibody, IgM type [facility] Start: 03-13-2024 Hepatitis B core ant ibody measurement [facility] Start: 03-13-2024 Hepatitis B core ant ibody measurement, IgM type [facility] Start: 03-13-2024 Hepatitis B virus paniagua rface Ab [Presence] in Serum [facility] Start: 03-13-2024 IgG [Mass/volume] in Serum or Plasma [facility] Start: 03-13-2024 Lipoprotein a [Moles/volume] in Serum or Plasma [facility] Start: 03-13-2024 Mitochondria M2 IgG Ab [Units/volume] in Serum [facility] Start: 03-13-2024 [facility] Start: 01-08-2024 Influenza vaccination Influenza Vacc ine (#1) [facility] Start: 08-04-2023 MG Breast - bilatera l Screening [facility] Start: 08-04-2023 Screening mammograph y of bilateral breasts MM screening mammo BI w/CAD [facility] Start: 10-11-2022 [facility] Alpha 1 antitrypsin [Mass/volume] in Serum or Plasma [facility] Alpha 1 antitrypsin phenotyping [Identifier] in Serum or Plasma by Immunofixation [facility] Hepatic function panel [facility] Hepatitis B virus paniagua rface Ag [Presence] in Serum or Plasma by Immunoassay [facility] Hepatitis C virus Ig G Ab [Presence] in Serum or Plasma by Immunoassay [facility] HFE gene mutations f ound [Identifier] in Blood or Tissue by Molecular genetics method Nominal [facility] Homogenous nuclear A b pattern [Titer] in Serum [facility] IgG [Mass/volume] in Serum or Plasma [facility] Nuclear Ab [Titer] i n Serum [facility] Patient Education [facility] Live r Biopsy Discharge Instructions Know your Meds [facility] Work Phone: [facility] Payers Date Payer Category Payer Self-pay [id number] 2022 Private Health Insurance [employer] [id number] 1983 Unknown [id number] 1983 Unknown [id number] 1983 Unknown [id number] 1983 Unknown [id number]. 1259 1961 Unknown [id number] Unknown [id number] 2.16840.1.986454.3.579.2. 531 Unknown [id number] 2.16840.1.541582.3.579.2. 531 Unknown [id number] 2.16840.1.057211.3.579.2. 531 Unknown [id number] 2.16840.1.469686.3.579.2. 531 Unknown [id number] 2.16840.1.891536.3.579.2. 531 Unknown [id number] 2.16840.1.124046.3.579.2. 531 Unknown [id number] 2.16.840.1.113773.3.579.2. 531 Unknown [id number] 2.16840.1.548595.3.579.2. 531 Unknown [id number] 2.16840.1.255146.3.579.2. 531 Unknown [id number] 2..840.1.494781.3.579.2. 531 Unknown [id number] 2.16.840.1.925146.3.579.2. 531 Unknown [id number] 2.16.840.1.806667.3.579.2. 531 Social History Date Type Detail Facility Start: 09-16-2020 End: 04-21-2023 Tobacco smoking status NHIS Never smoked tobacco (finding) [facility] Start: 1985 Sex Assigned At Female F [facility] Start: 05-22-2024 End: 06-21-2024 Sex Female (finding) [facility] Start: 06-27-2023 Alcoholic beverage intake Current drinker of alcohol (finding) [facility] Start: 04-21-2023 History of Social function [facility] Start: 04-21-2023 Tobacco use panel [facility] Start: 04-21-2023 Alcohol Comment Occasional alc ohol use. Caffeine: coffee [facility] Start: 1985 Sex assigned at Not on file [facility] Start: 02-03-2023 Gender identity Identifies as female gender (finding) [facility] Functional Status Date Assessment Result Facility 03-13-2024 Fibrosis score Enhanced Liver Fibrosis Score Fibrosis score [facility] Comment on above: ELF(TM) Score Interp retation:Risk cut-offs to assess the likelihood of progressionto cirrhosis and liver-related clinical events within3.9 years following baseline ELF score (IQR: 14.0-22.4months)*: Lower risk < 9.80 Mid risk 9.80 - 11.29 Higher risk >11.29Note: The ELF(TM) Score is a unitless numerical value.*Jim SA, Deon VW, Okzeina T, et al. Selonsertibfor patients with bridging fibrosis or compensatedcirrhosis due to SHIN: Results from randomized phaseIII STELLAR trials. J Hepatol. 2020 Nov;73(1):26-39.Performed at: [address] [id number] Director: Anna Chen MD, Phone: [phone] Evaluation note 04-17-2024 Note Date & Type Note Facility 04-17-2024 Evaluation note Authored April 17, 2024 1:39pm 38-year-old female referred to the liver clinic for evaluation of elevated liver enzymes. Ultrasound liver on 12/09/2023 showed hepatic steatosis. [id number] genotype MS. KISHAN is positive Otherwise laboratory workup for infectious autoimmune or metabolic etiologies of liver diseases were unremarkable. FibroScan showed LSM 3.8 consistent with no significant fibrosis and CAP 234 consistent with no significant steatosis - Will recheck liver enzymes. If they remain elevated we will arrange for a liver biopsy to evaluate for autoimmune hepatitis. If liver enzymes normalize spontaneously then no need for further workup Author odette [facility] Authored May 22, 2024 2 :06pm 38-year-old female referred to the liver clinic for evaluation of elevated liver enzymes. Ultrasound liver on 12/09/2023 showed hepatic steatosis. [id number] genotype MS. KISHAN is positive Otherwise laboratory workup for infectious autoimmune or metabolic etiologies of liver diseases were unremarkable. FibroScan showed LSM 3.8 consistent with no significant fibrosis and CAP 234 consistent with no significant steatosis Liver biopsy showed hepatic parenchyma with portal inflammation, mild focal interface activity trichrome stain highlights portal fibrosis and rare perisinusoidal fibrosis -The etiology could be autoimmune hepatitis, patient has positive KISHAN and mild interface activity on liver biopsy. Will provide treatment trial with steroids and monitor liver enzymes. If liver enzymes respond to steroids then will start [facility] Work Phone: Evaluation note 03-13-2024 Note Date & Type Note Facility 03-13-2024 Evaluation note Authored March 13, 2024 1 :10pm 38-year-old female referred to the liver clinic for evaluation of elevated liver enzymes. Ultrasound liver on 12/09/2023 showed hepatic steatosis. Will get laboratory workup for infectious autoimmune or metabolic etiologies of liver disease. Will arrange for FibroScan. [facility] Work Phone: Evaluation note 03-13-2024 Note Date & Type Note Facility 03-13-2024 Evaluation note Authored March 13, 2024 1 :10pm 38-year-old female referred to the liver clinic for evaluation of elevated liver enzymes. Ultrasound liver on 12/09/2023 showed hepatic steatosis. Will get laboratory workup for infectious autoimmune or metabolic etiologies of liver disease. Will arrange for FibroScan. [facility] Authored April 17, 2024 1:39pm 38-year-old female referred to the liver clinic for evaluation of elevated liver enzymes. Ultrasound liver on 12/09/2023 showed hepatic steatosis. [id number] genotype MS. KISHAN is positive Otherwise laboratory workup for infectious autoimmune or metabolic etiologies of liver diseases were unremarkable. FibroScan showed LSM 3.8 consistent with no significant fibrosis and CAP 234 consistent with no significant steatosis - Will recheck liver enzymes. If they remain elevated we will arrange for a liver biopsy to evaluate for autoimmune hepatitis. If liver enzymes normalize spontaneously then no need for further workup [facility] Work Phone: Evaluation note 03-13-2024 Note Date & Type Note Facility 03-13-2024 Evaluation note Authored March 13, 2024 1 :10pm 38-year-old female referred to the liver clinic for evaluation of elevated liver enzymes. Ultrasound liver on 12/09/2023 showed hepatic steatosis. Will get laboratory workup for infectious autoimmune or metabolic etiologies of liver disease. Will arrange for FibroScan. [facility] Authored April 17, 2024 1:39pm 38-year-old female referred to the liver clinic for evaluation of elevated liver enzymes. Ultrasound liver on 12/09/2023 showed hepatic steatosis. [id number] genotype MS. KISHAN is positive Otherwise laboratory workup for infectious autoimmune or metabolic etiologies of liver diseases were unremarkable. FibroScan showed LSM 3.8 consistent with no significant fibrosis and CAP 234 consistent with no significant steatosis - Will recheck liver enzymes. If they remain elevated we will arrange for a liver biopsy to evaluate for autoimmune hepatitis. If liver enzymes normalize spontaneously then no need for further workup [facility] Authored May 22, 2024 2 :06pm 38-year-old female referred to the liver clinic for evaluation of elevated liver enzymes. Ultrasound liver on 12/09/2023 showed hepatic steatosis. [id number] genotype MS. KISHAN is positive Otherwise laboratory workup for infectious autoimmune or metabolic etiologies of liver diseases were unremarkable. FibroScan showed LSM 3.8 consistent with no significant fibrosis and CAP 234 consistent with no significant steatosis Liver biopsy showed hepatic parenchyma with portal inflammation, mild focal interface activity trichrome stain highlights portal fibrosis and rare perisinusoidal fibrosis -The etiology could be autoimmune hepatitis, patient has positive KISHAN and mild interface activity on liver biopsy. Will provide treatment trial with steroids and monitor liver enzymes. If liver enzymes respond to steroids then will start [facility] Work Phone: Evaluation note 12-09-2023 Note Date & Type Note Facility 12-09-2023 Evaluation note Authored March 13, 2024 1 :10pm 38-year-old female referred to the liver clinic for evaluation of elevated liver enzymes. Ultrasound liver on 12/09/2023 showed hepatic steatosis. Will get laboratory workup for infectious autoimmune or metabolic etiologies of liver disease. Will arrange for FibroScan. [facility] Work Phone: Evaluation note Note Date & Type Note Facility Evaluation note No assessment information availa ble [facility] Work Phone: Summary Purpose Family History Relationship Condition Age at Onset Recorded Date/T arnav grandparent Malignant neoplasm of breast Unknown Advance Directives Advance Directive Response Recorded Date/ Time Advance Directives No October 30 9:28am Advance Directive Response Recorded Date/ Time Advance Directives No October 30 8:28am Chief Complaint and Reason for Visit Chief Complaint Pillars Chief Complaint flu vaccine Chief Complaint z12.31 z01.419 Chief Complaint z12.31 z01.419 pillars Chief Complaint pillars R74.0 E06.3 Z79.899 Chief Complaint pillars R74.0 E06.3 Z79.899 high lft Chief Complaint high lft Chief Complaint E06.3 Z79.89 Refer: elevated LFTs Reason for Visit Elevated liver enzym es Hepatic steatosis Chief Complaint E06.3 Z79.89 Refer: elevated LFTs k76.0 Reason for Visit Elevated liver enzym es Hepatic steatosis Chief Complaint Admit Date E06.3 Z79.89 March 07, 2024 9 :05am Refer: elevated LFTs March 13, 2024 12:45pm k76.0 March 13, 2024 1 :17pm Fatty Liver April 04, 2024 11:13am follow up fibroscan April 17, 2024 1:00pm R74.8 April 17, 2024 1:41pm R74.8 May 03, 2024 7:49am DISCUSS LIVER BX May 22, 2024 1 :48pm Reason for Visit Admit Date Elevated liver enzymes March 13 12:45pm Hepatic steatosis March 13, 2024 1 2:45pm Elevated liver enzymes April 17 1:00pm Elevated liver enzymes May 03 7:49am Chief Complaint Admit Date Refer: elevated LFTs March 13, 2024 12:45pm k76.0 March 13, 2024 1 :17pm Fatty Liver April 04, 2024 11:13am follow up fibroscan April 17, 2024 1:00pm R74.8 April 17, 2024 1:41pm R74.8 May 03, 2024 7:49am DISCUSS LIVER BX May 22, 2024 1 :48pm K76.0 R74.8 June 06, 2024 6 :38am Reason for Visit Admit Date Elevated liver enzymes March 13 12:45pm Hepatic steatosis March 13, 2024 1 2:45pm Elevated liver enzymes April 17 1:00pm Elevated liver enzymes May 03 7:49am Elevated liver enzymes May 22 1:48pm Chief Complaint Admit Date Refer: elevated LFTs March 13, 2024 12:45pm k76.0 March 13, 2024 1 :17pm Fatty Liver April 04, 2024 11:13am follow up fibroscan April 17, 2024 1:00pm R74.8 April 17, 2024 1:41pm R74.8 May 03, 2024 7:49am DISCUSS LIVER BX May 22, 2024 1 :48pm K76.0 R74.8 June 06, 2024 6 :38am K75.4 - Autoimmune hepatitis May 7:06am Chief Complaint Admit Date Fatty Liver April 04, 2024 11:13am follow up fibroscan April 17, 2024 1:00pm R74.8 April 17, 2024 1:41pm R74.8 May 03, 2024 7:49am DISCUSS LIVER BX May 22, 2024 1 :48pm K76.0 R74.8 June 06, 2024 6 :38am K75.4 - Autoimmune hepatitis May 7:06am K76.0 R74.8 June 20, 2024 1:59pm Reason for Visit Admit Date Elevated liver enzymes April 17 1:00pm Elevated liver enzymes May 03 7:49am Elevated liver enzymes May 22 1:48pm Additional Source Comments INFORMATION SOURCE (unrecogn ized section and content) DATE CREATED AUTHOR 11/12/2021 [facility] DATE CREATED AUTHOR AUTHOR'S ORGANIZ ATION 06/27/2023 [facility] EPIC DATE CREATED AUTHOR AUTHOR'S ORGANIZ ATION 06/22/2024 [facility] Care Teams (unrecognized sec tion and content) Team Status: Active Member Role Status Dates Shahab Townsend DO Primary Care Provider Active Team Status: Inactive Member Role Status Dates Shahab Townsend DO Primary Care Provider Active Juan Zamudio DO [facility] Attending Provider Active Team Status: Inactive Member Role Status Dates Shahab Townsend DO Primary Care Provider Active Start: August 04, 2023 End: August 04, 2023 Phani Carvajal Attending Provider Active Start: [facility] 2023 End: August 04, 2023 Team Status: Inactive Member Role Status Dates Shahab Townsend DO Primary Care Provider Active Start: October 18, 2023 End: October 18, 2023 Juan VERAS DO [facility] Attending Provider Active Start: October 18, 2023 End: October 18, 2023 Team Status: Inactive Member Role Status Dates Shahab Townsend DO Primary Care Provide r, Attending Provider Active Start: November 29, 2023 End: November 29, 2023 Team Status: Inactive Member Role Status Dates Shahab Townsend DO Primary Care Provide r, Attending Provider Active Start: December 09, 2023 End: December 09, 2023 Team Status: Inactive Member Role Status Dates Shahab Townsend DO Primary Care Provide r, Attending Provider Active Start: March 07, 2024 End: March 07, 2024 Team Status: Inactive Member Role Status Dates Shahab Townsend DO Primary Care Provider Active Start: March 13, 2024 End: March 13, 2024 Frankie Mondragon MD Attending Provider Active Start: March 13, 2024 End: March 13, 2024 Team Status: Inactive Member Role Status Dates Shahab Townsend DO Primary Care Provider Active Start: April 04, 2024 End: April 04, 2024 Frankie Mondragon MD Attending Provider Active Start: April 04, 2024 End: April 04, 2024 Team Status: Inactive Member Role Status Dates Shahab Townsend DO Primary Care Provider Active Start: April 17, 2024 End: April 17, 2024 Frankie Mondragon MD Attending Provider Active Start: April 17, 2024 End: April 17, 2024 Team Status: Inactive Member Role Status Dates Shahab Townsend DO Primary Care Provider Active Start: May 03, 2024 End: May 03, 2024 Frankie Mondragon MD Attending Provider Active Start: May 03, 2024 End: May 03, 2024 Team Status: Inactive Member Role Status Dates Shahab Townsend DO Primary Care Provider Active Start: May 22, 2024 End: May 22, 2024 Frankie Mondragon MD Attending Provider Active Start: May 22, 2024 End: May 22, 2024 Team Status: Inactive Member Role Status Dates Shahab Townesnd DO Primary Care Provider Active Start: June 06, 2024 End: June 06, 2024 Frankie Mondragon MD Attending Provider Active Start: June 06, 2024 End: June 06, 2024 Team Status: Inactive Member Role Status Dates Shahba Townsend DO Primary Care Provider Active Start: June 08, 2024 End: June 08, 2024 Frankie Mondragon MD Attending Provider Active Start: June 08, 2024 End: June 08, 2024 Team Status: Inactive Member Role Status Dates Shahab Townsend DO Primary Care Provider Active Start: June 20, 2024 End: June 20, 2024 rFankie Mondragon MD Attending Provider Active Start: June 20, 2024 End: June 20, 2024 Digital Production Artist Relationship Specialty Start Date End Date Shahab Townsend [address] [place] [address] PCP - General Family Medicine 05/17/23 Goals (unrecognized section and content) Goals may be documented in a n alternate sectionGoals may be documented in an alternate sectionGoals may be documented in an alternate sectionGoals may be documented in an alternate sectionGoals may be documented in an alternate sectionGoals may be documented in an alternate sectionGoals may be documented in an alternate sectionGoals may be documented in an alternate sectionGoals may be documented in an alternate sectionGoals may be documented in an alternate sectionGoals may be documented in an alternate sectionGoals may be documented in an alternate sectionGoals may be documented in an alternate section FOR RECORDS PERTAINING TO PATIENTS WHO ARE OR HAVE BEEN ENROLLED IN A CHEMICAL DEPENDENCY/SUBSTANCEABUSE PROGRAM, SOME INFORMATION MAY BE OMITTED. This clinical summary was aggregated from multiple sources. Caution should be exercised in using it in the provision of clinical care. This summary normalizes information from multiple sources, and as a consequence, information in this document may materially change the coding, format and clinical context of patient data. In addition, data may be omitted in some cases. CLINICAL DECISIONS SHOULD BE BASED ON THE PRIMARY CLINICAL RECORDS. [facility] [employer] [facility]. provides no warranty or guarantee of the accuracy or completeness of information in this document.
== END 2024-07-02 21:39 | disposition home or self-care (01) ==
LOC: LAB 21:38
PROVIDERS: PCP Obstetrics & Gynecology; Visit Provider Obstetrics & Gynecology
DX: Z01.419 Encounter for gynecological examination (general) (routine) without abnormal findings (principal)
CPT/HCPCS: 87624; 88175